=== PATIENT | female | born 1950 | race Caucasian/White ===

== ENCOUNTER → 2018-09-30 08:23 | Outpatient (CLI) | payer MEDICARE, SELFPAY ==
--- NOTE | 2018-09-30 08:29 | CT_ITS ---
STUDY: CT MAXILLOFACIAL SINUSES REASON FOR EXAM: Female, 68 years old. Sinusitis with deviated septum RADIATION DOSAGE (If Supplied By Facility): CTDIvol = ( 33.06 ) mGy, DLP = ( 854.51 ) mGycm TECHNIQUE: The patient was scanned in a multi detector CT scanner. High resolution axial imaging was performed without the administration of intravenous contrast material. Sagittal and coronal images were reconstructed. Individualized dose optimization techniques were used for this CT. COMPARISON: None. FINDINGS: FRONTAL SINUSES: Complete opacification the right frontal sinuses. Left frontal sinuses are clear. ETHMOIDAL SINUSES: Near complete opacification of the right ethmoid air cells (anterior and posterior) with normal appearance of left ethmoid air cells. As an osteoma of the anterior ethmoid sinuses (axial image 99). MAXILLARY SINUSES: Near complete opacification of the right maxillary sinus with an air-fluid level demonstrated. There is ossification of the posterior/dependent maxillary sinus on axial image 68 and may represent a calcified because retention cyst or other sequela of inflammation. There is a defect in the medial maxillary sinus wall on axial image 77 suggesting prior osteotomy. The left maxillary sinus is clear. SPHENOIDAL SINUSES: Complete opacification of the right sphenoid sinuses with minimally aerated portion anteriorly. Left sphenoid sinus is clear. There is patency of the left maxillary infundibulum with normal uncinate processes, ethmoid bullae, and hiatus semilunaris. There is soft tissue density extending into the right maxillary sinus infundibulum but no evidence of osseous erosion. Normal bilateral middle turbinates. Normal bilateral inferior turbinates. There is a left sided nasal septal deviation with a left sided nasal septal spur. There is patency of the bilateral nasal airways. Rounded soft tissue density in the right external auditory canal (axial image 96) likely represents cerumen. Smaller focus of increased density in the left external auditory canal as seen on image 90. The visualized osseous structures are normal. The visualized bilateral orbital contents are normal. CT/Sinus/Facial Bone IMPRESSION: 1. Severe chronic sinusitis of the right frontal, ethmoid, maxillary and sphenoid sinuses. Apparent right maxillary sinus medial osteotomy. 2. Left paranasal sinuses are free of significant mucosal thickening. 3. Right more than left external auditory canal cerumen. Electronically Signed: Kwadwo Medina MD at 12:56 EDT , Service support ,
== END ==
PROVIDERS: Family Provider Family Medicine; PCP Family Medicine; Referring Provider Otolaryngology; Visit Provider Otolaryngology
DX: J32.9 Chronic sinusitis, unspecified (principal); R09.81 Nasal congestion
CPT/HCPCS: 70486

== ENCOUNTER → 2018-10-19 | Outpatient (CLI) | payer MEDICARE, SELFPAY | END | disposition home or self-care (01) | LOC: LABSPEC 15:53 | PROVIDERS: Family Provider Family Medicine; PCP Family Medicine; Referring Provider Otolaryngology; Visit Provider Otolaryngology | DX: J32.9 Chronic sinusitis, unspecified (principal) | CPT/HCPCS: 87070; 87077; 87186; 87205 ==

== ENCOUNTER → 2019-07-06 11:09 | Outpatient (CLI) | payer MEDICARE, SELFPAY ==
[2019-06-22 15:40] VITALS: BMI 22.9
[2019-07-06 13:18] LABS: Hematocrit 38.1 % (37-47); Hemoglobin 12.4 g/dL (12.0-15.0); Mean Corp Hgb Conc 32.5 g/dL (32-36); Mean Corpuscular Hgb 31.8 pg (27.0-32.0); Mean Corpuscular Volume 97.7 fL (81-99); Mean Platelet Vol. 9.6 fl (6.2-12.0); Platelet Count 244 K/mm3 (150-450); RBC Distribution Width CV 11.9 % (11.6-14.6); RBC Distribution Width SD 42.8 fl (35.1-43.9); White Blood Count 6.1 K/mm3 (4.4-11.0)
[2019-07-06 13:34] LABS: Anion Gap 5 (5-15); BUN 16 mg/dL (7-18); BUN/Creat Ratio 15.8 RATIO (10-20); Calcium,Total 8.9 mg/dL (8.5-10.1); Chloride 102 mmol/L (98-107); Creatinine, Serum 1.01 mg/dL (0.55-1.02); EST Glomerular Filtration Rate 58 mL/min (>60); Est Glom Filt Rate - Afr Amer 70 mL/min (>60); Glucose 88 mg/dL (74-106); Potassium 3.8 mmol/L (3.5-5.1); Sodium Level 134 mmol/L (136-145)
== END ==
PROVIDERS: Family Provider Family Medicine; PCP Family Medicine; Referring Provider Otolaryngology; Visit Provider Otolaryngology
DX: Z01.812 Encounter for preprocedural laboratory examination (principal); J32.4 Chronic pansinusitis
CPT/HCPCS: 36415; 80048; 85027

== ENCOUNTER → 2019-07-17 12:55 | Outpatient (CLI) | payer MEDICARE, SELFPAY ==
[2019-06-22 15:40] VITALS: BMI 22.9
--- NOTE | 2019-07-17 12:56 | ECHOD_ITS ---
Reason For Study: Murmur Procedure This was a 2D Doppler, Color Flow transthoracic echocardiogram. The exam was of adequate technical quality. Exam performed in department. Left Ventricle Normal LV size. Left ventricular systolic function is normal. The estimated ejection fraction is 65 %. Diastolic function is indeterminate. No regional wall motion abnormalities noted. Right Ventricle Normal RV size. Normal systolic function. Atria Normal left atrium. Normal right atrium. No doppler evidence for ASD. Mitral Valve There is no mitral annular calcification. Mild diffuse mitral valve thickening. Mild (1+) mitral valve insufficiency. Tricuspid Valve Normal tricuspid valve. Moderate (2+) tricuspid valve insufficiency. Right ventricular systolic pressure estimated to be 36 mmHg. Aortic Valve Bicuspid aortic valve. Mild diffuse aortic valve thickening. Moderate focal aortic valve calcification. Mild to moderate aortic stenosis. Pulmonic Valve The pulmonic valve is not well visualized. Trivial pulmonic valve insufficiency. Great Vessels Mildly dilated aortic root. Pericardium/Pleural No pericardial effusion. MMode/2D Measurements & Calculations LVIDd: 3.2 cm IVSd: 1.3 cm LVOT diam: 2.0 cm LVIDs: 2.0 cm LVPWd: 1.2 cm LVOT area: 3.2 cm2 RVDd: 3.0 cm FS: 37.6 % Ao root diam: 4.0 cm LAV(MOD-bp): 34.9 ml Aortic Valve Planimetry: 1.5 cm2 LA dimension: 2.9 cm LAV(MOD-bp) Indexed: 20.9 ml/m2 LAV(MOD-sp2): 35.3 ml LAV(MOD-sp4): 29.9 ml LA A4 area: 12.9 cm2 RA A4 area: 12.1 cm2 Time Measurements MV dec time: 0.24 sec Doppler Measurements & Calculations MV E max clay: 70.1 cm/sec Lat Peak E' Clay: 9.8 cm/sec Med Peak E' Clay: 5.7 cm/sec MV A max clay: 100.8 cm/sec E/E' lat: 7.1 E/E' med: 12.2 MV E/A: 0.70 MV V2 max: 108.7 cm/sec MV P1/2t max clay: 77.8 cm/sec Ao V2 max: 294.5 cm/sec MV max P.7 mmHg MV P1/2t: 46.8 msec Ao max P.7 mmHg MV V2 mean: 63.3 cm/sec MV dec slope: 486.8 cm/sec2 Ao V2 mean: 207.8 cm/sec MV mean P.9 mmHg Ao mean P.4 mmHg MV V2 VTI: 22.9 cm MVA(P1/2t): 4.7 cm2 Ao V2 VTI: 62.9 cm MVA(VTI): 3.1 cm2 YASMIN(I,D): 1.1 cm2 YASMIN(V,D): 1.1 cm2 LV V1 max: 104.6 cm/sec SV(LVOT): 70.8 ml PA V2 max: 84.6 cm/sec LV V1 max P.4 mmHg LV V1 mean P.2 mmHg LV V1 mean: 67.2 cm/sec LV V1 VTI: 21.9 cm TR max clay: 286.3 cm/sec TR max P.8 mmHg Interpretation Summary Left ventricular systolic function is normal. The estimated ejection fraction is 65 %. Mild diffuse mitral valve thickening. Mild (1+) mitral valve insufficiency. Moderate (2+) tricuspid valve insufficiency. Bicuspid aortic valve. Mild to moderate aortic stenosis. Trivial pulmonic valve insufficiency. Mildly dilated aortic root. Right ventricular systolic pressure estimated to be 36 mmHg. Diastolic function is indeterminate. Ordering Physician: Angel Silverman Referring Physician: Angel Silverman Performed By: Jamie Crews RCS
== END ==
PROVIDERS: Family Provider Family Medicine; PCP Family Medicine; Referring Provider Internal Medicine Cardiovascular Disease; Visit Provider Internal Medicine Cardiovascular Disease
DX: I71.2 Thoracic aortic aneurysm, without rupture (principal)
CPT/HCPCS: 93306

== ENCOUNTER → 2020-07-25 09:57 | Outpatient (CLI) | payer MEDICARE, SELFPAY ==
[2020-06-21 10:09] VITALS: BMI 25.2
--- NOTE | 2020-07-25 10:03 | ECHOD_ITS ---
Reason For Study: BICUSPID AV Procedure This was a 2D Doppler, Color Flow transthoracic echocardiogram. The exam was of adequate technical quality. Exam performed in department. Left Ventricle Normal LV size. Left ventricular systolic function is normal. The estimated ejection fraction is 60 %. No evidence for diastolic dysfunction. No regional wall motion abnormalities noted. Right Ventricle Normal RV size. Normal systolic function. Atria The left atrium is mildly enlarged. Normal right atrium. No doppler evidence for ASD. Mitral Valve There is no mitral annular calcification. Mild diffuse mitral valve thickening. Mild-Moderate (1-2+) mitral valve insufficiency. Tricuspid Valve Normal tricuspid valve. Moderate (2+) tricuspid valve insufficiency. Right ventricular systolic pressure estimated to be 37 mmHg. Aortic Valve Bicuspid aortic valve. Mild diffuse aortic valve thickening. Moderate diffuse aortic valve calcification. Moderate aortic stenosis. Pulmonic Valve The pulmonic valve is not well visualized. Trivial pulmonic valve insufficiency. Great Vessels Borderline enlarged aortic root. Pericardium/Pleural No pericardial effusion. MMode/2D Measurements & Calculations LVIDd: 3.6 cm IVSd: 0.98 cm LVOT diam: 2.0 cm LVIDs: 2.5 cm LVPWd: 0.98 cm LVOT area: 3.0 cm2 RVDd: 3.2 cm FS: 30.6 % Ao root diam: 3.8 cm LAV(MOD-bp): 52.7 ml Aortic Valve Planimetry: 0.89 cm2 LAV(MOD-bp) Indexed: 30.0 ml/m2 LAV(MOD-sp2): 46.2 ml LAV(MOD-sp4): 46.4 ml LA dimension(2D): 3.8 cm LA A4 area: 17.2 cm2 RA A4 area: 15.8 cm2 Time Measurements MV dec time: 0.27 sec Doppler Measurements & Calculations MV E max clay: 71.2 cm/sec Lat Peak E' Clay: 12.3 cm/sec Med Peak E' Clay: 8.5 cm/sec MV A max clay: 87.1 cm/sec E/E' lat: 5.8 E/E' med: 8.4 MV E/A: 0.82 Ao V2 max: 315.0 cm/sec LV V1 max: 91.7 cm/sec SV(LVOT): 64.8 ml Ao max P.7 mmHg LV V1 max P.4 mmHg Ao V2 mean: 241.9 cm/sec LV V1 mean P.0 mmHg Ao mean P.0 mmHg LV V1 mean: 66.6 cm/sec Ao V2 VTI: 77.6 cm LV V1 VTI: 21.4 cm YASMIN(I,D): 0.83 cm2 YASMIN(V,D): 0.88 cm2 PA V2 max: 70.6 cm/sec PI end-d clay: 83.9 cm/sec TR max clay: 291.6 cm/sec TR max P.0 mmHg Interpretation Summary Left ventricular systolic function is normal. The estimated ejection fraction is 60 %. The left atrium is mildly enlarged. Mild diffuse mitral valve thickening. Mild-Moderate (1-2+) mitral valve insufficiency. Moderate (2+) tricuspid valve insufficiency. Bicuspid aortic valve. Moderate aortic stenosis. Trivial pulmonic valve insufficiency. Borderline enlarged aortic root. Right ventricular systolic pressure estimated to be 37 mmHg. No evidence for diastolic dysfunction. Ordering Physician: Angel Silverman Referring Physician: GEGE SHORE Performed By: Lina Latham, RDCS, RVT
== END ==
PROVIDERS: PCP Family Medicine; Referring Provider Internal Medicine Cardiovascular Disease; Visit Provider Internal Medicine Cardiovascular Disease
DX: Q23.1 Congenital insufficiency of aortic valve (principal); I71.2 Thoracic aortic aneurysm, without rupture; I10 Essential (primary) hypertension
CPT/HCPCS: 93306

== ENCOUNTER 2021-09-17 10:38 | Outpatient (CLI) | payer MEDICARE, SELFPAY ==
--- NOTE | 2021-09-17 10:44 | ECHOD_ITS ---
Reason For Study: Bicuspid AV Procedure This was a 2D Doppler, Color Flow transthoracic echocardiogram. The exam was of adequate technical quality. Exam performed in department. Left Ventricle Normal LV size. Mid cavitary false tendon noted. Left ventricular systolic function is normal. The estimated ejection fraction is 65 %. No evidence for diastolic dysfunction. No regional wall motion abnormalities noted. Right Ventricle Normal RV size. Normal systolic function. Atria The left atrium is mildly enlarged. Normal right atrium. No doppler evidence for ASD. Mitral Valve There is no mitral annular calcification. Mild diffuse mitral valve thickening. Mild-Moderate (1-2+) mitral valve insufficiency. Tricuspid Valve Normal tricuspid valve. Moderate (2+) tricuspid valve insufficiency. Right ventricular systolic pressure estimated to be 34 mmHg. Aortic Valve Bicuspid aortic valve. Mild diffuse aortic valve thickening. Moderate focal aortic valve calcification. Moderate aortic stenosis. Pulmonic Valve The pulmonic valve is not well visualized. Great Vessels Borderline enlarged aortic root. Pericardium/Pleural No pericardial effusion. MMode/2D Measurements & Calculations LVIDd: 4.0 cm IVSd: 1.0 cm LVOT diam: 2.0 cm LVIDs: 2.4 cm LVPWd: 0.91 cm LVOT area: 3.1 cm2 RVDd: 3.0 cm FS: 38.1 % Ao root diam: 3.5 cm LAV(MOD-bp): 47.5 ml LVAd ap4: 22.9 cm2 LAV(MOD-bp) Indexed: 28.8 ml/m2 LVLd ap4: 7.0 cm LAV(MOD-sp2): 48.0 ml EDV(MOD-sp4): 61.6 ml LAV(MOD-sp4): 41.9 ml EDV(sp4-el): 63.5 ml LVAs ap4: 12.5 cm2 LVLs ap4: 5.7 cm ESV(MOD-sp4): 24.2 ml ESV(sp4-el): 23.4 ml EF(MOD-sp4): 60.8 % EF(sp4-el): 63.2 % LVAd ap2: 22.1 cm2 SV(MOD-sp4): 37.4 ml SV(MOD-sp2): 39.4 ml LVLd ap2: 6.8 cm EDV(MOD-sp2): 60.8 ml EDV(sp2-el): 60.5 ml LVAs ap2: 12.2 cm2 LVLs ap2: 6.1 cm ESV(MOD-sp2): 21.4 ml ESV(sp2-el): 20.9 ml EF(MOD-sp2): 64.8 % SV(sp4-el): 40.1 ml LA dimension(2D): 3.4 cm LA A4 area: 15.7 cm2 RA A4 area: 17.8 cm2 Doppler Measurements & Calculations MV E max clay: 86.1 cm/sec Lat Peak E' Clay: 11.6 cm/sec Med Peak E' Clay: 7.4 cm/sec MV A max clay: 81.6 cm/sec E/E' lat: 7.4 E/E' med: 11.7 MV E/A: 1.1 Ao V2 max: 309.6 cm/sec LV V1 max: 106.0 cm/sec SV(LVOT): 74.1 ml Ao max P.4 mmHg LV V1 max P.5 mmHg Ao V2 mean: 218.4 cm/sec LV V1 mean P.3 mmHg Ao mean P.3 mmHg LV V1 mean: 72.1 cm/sec Ao V2 VTI: 75.8 cm LV V1 VTI: 24.3 cm YASMIN(I,D): 0.98 cm2 YASMIN(V,D): 1.0 cm2 PA V2 max: 80.9 cm/sec TR max clay: 277.2 cm/sec TR max P.7 mmHg ECHO/Echo Complete Interpretation Summary Left ventricular systolic function is normal. The estimated ejection fraction is 65 %. Mid cavitary false tendon noted. The left atrium is mildly enlarged. Mild diffuse mitral valve thickening. Mild-Moderate (1-2+) mitral valve insufficiency. Moderate (2+) tricuspid valve insufficiency. Bicuspid aortic valve. Moderate aortic stenosis. Borderline enlarged aortic root. Right ventricular systolic pressure estimated to be 34 mmHg. No evidence for diastolic dysfunction. Ordering Physician: Angel Silverman Referring Physician: Tyrese Alicia Performed By: Zari Goddard, [facility]
== END 2021-09-17 23:59 | disposition home or self-care (01) ==
LOC: CVS 10:44
PROVIDERS: PCP Family Medicine; Referring Provider Internal Medicine Cardiovascular Disease; Visit Provider Internal Medicine Cardiovascular Disease
DX: Q23.1 Congenital insufficiency of aortic valve (principal)
CPT/HCPCS: 93306

== ENCOUNTER → 2022-03-16 | Outpatient (CLI) | payer MEDICARE, SELFPAY ==
[2022-03-16 17:47] LABS: Hematocrit 35.4 % (37-47); Hemoglobin 11.8 g/dL (12.0-15.0); Mean Corp Hgb Conc 33.3 g/dL (32-36); Mean Corpuscular Volume 98.9 fL (81-99); Mean Platelet Vol. 10.5 fl (6.2-12.0); Platelet Count 216 K/mm3 (150-450); RBC Distribution Width CV 12.5 % (11.6-14.6); RBC Distribution Width SD 45.5 fl (35.1-43.9); Red Blood Count 3.58 M/mm3 (4.2-5.4); White Blood Count 5.1 K/mm3 (4.4-11.0)
[2022-03-16 18:09] LABS: Erythrocyte Sedimentation Rate 10 mm/hr (0-30)
[2022-03-16 18:40] LABS: Vitamin B12 1186 pg/mL (211-911)
[2022-03-16 18:46] LABS: AST(SGOT) 18 U/L (15-37); Alanine Aminotransfer ALT/SGPT 24 U/L (13-56); Albumin, Serum 3.3 g/dL (3.2-5.0); Alkaline Phosphatase 44 U/L (45-117); Anion Gap 5 (5-15); BUN 17 mg/dL (7-18); BUN/Creat Ratio 14.8 RATIO (10-20); Chloride 105 mmol/L (98-107); Creatinine, Serum 1.15 mg/dL (0.55-1.02); EST Glomerular Filtration Rate 49 mL/min (>60); Est Glom Filt Rate - Afr Amer 60 mL/min (>60); Globulin 3.4 g/dL (2.2-4.2); Glucose 114 mg/dL (74-106); Potassium 3.9 mmol/L (3.5-5.1); Protein, Total 6.7 g/dL (6.4-8.2); Sodium Level 138 mmol/L (136-145); Thyroid Stim Hormone (TSH) 0.61 uIU/mL (0.358-3.74)
== END | disposition home or self-care (01) ==
LOC: MFPLAB 16:49
PROVIDERS: PCP Family Medicine; Visit Provider Family Medicine
DX: R41.0 Disorientation, unspecified (principal)
CPT/HCPCS: 36415; 80053; 82607; 84443; 85027; 85652

== ENCOUNTER → 2022-09-28 | Outpatient (CLI) | payer MEDICARE, SELFPAY ==
--- NOTE | 2022-09-28 10:24 | RAD_ITS ---
EXAM: XR LUMBOSACRAL SPINE, 4 OR 5 VIEWS CLINICAL INDICATION: PAIN IN BOTH LOWER EXTREMITIES TECHNIQUE: Frontal, lateral and bilateral oblique views of the lumbar spine. This report was created using [employer] report [employer] technology. COMPARISON: None. FINDINGS: VERTEBRAE: There is anterior spondylolisthesis of L4 on L5 of 7 mm. Preserved vertebral body height. No fracture. Preservation of the normal lumbar lordosis. No significant facet arthropathy. DISC SPACES: No acute findings. Disc spaces are maintained. GASTROINTESTINAL TRACT: Unremarkable as visualized. Included bowel gas pattern is non-obstructive. RAD/L/S Spine Min 4 Views IMPRESSION: Degenerative changes at L4-5 with anterior spondylolisthesis of L4 on L5. There are no acute osseous abnormalities. Electronically Signed: Robert Tristan MD at 22:31 EDT ,
--- NOTE | 2022-09-28 10:24 | RAD_ITS ---
STUDY: XR Abdomen W/ Decub and/or Erect Views 09/28/2022 10:32 AM REASON FOR EXAM: Female, 72 years old. ABDOMINAL PAIN CONSTIPATION TECHNIQUE: XR Abdomen W/ Decub and/or Erect Views COMPARISON: None FINDINGS: Normal visualized lung bases. There is a moderate amount of colonic fecal material. There is no demonstrated free abdominal air. The visualized liver, spleen and kidneys are grossly normal in size and morphology. Normal soft tissue structures. Normal visualized osseous structures. RAD/Abd Inc Decub and/or Erect IMPRESSION: Constipation. Electronically Signed: Edil Estrada MD at 21:47 EDT ,
[2022-09-28 12:45] LABS: Erythrocyte Sedimentation Rate 52 mm/hr (0-30)
[2022-09-28 12:49] LABS: Absolute Lymphocyte Count 0.89 X10^3/uL (0.83-4.51); Absolute Neutrophil Count 9.4 X10^3/uL (2.0-7.7); Basophil# 0.08 X10^3/uL; Basophil% 0.7 % (0-1); Eosinophil# 0.15 X10^3/uL; Eosinophils% 1.3 % (0-5); Hematocrit 32.7 % (37-47); Hemoglobin 10.7 g/dL (12.0-15.0); Lymphocyte # 0.89 X10^3/ul (0.83-4.51); Lymphocyte % 7.9 % (19-41); Mean Corp Hgb Conc 32.7 g/dL (32-36); Mean Corpuscular Hgb 31.1 pg (27.0-32.0); Mean Corpuscular Volume 95.1 fL (81-99); Mean Platelet Vol. 9.9 fl (6.2-12.0); Monocyte# 0.74 X10^3/uL; Monocyte% 6.6 % (0-10); NRBC Flagged by Analyzer 0 % (0-5); Neutrophil # 9.36 X10^3/uL (2.7-7.7); Neutrophil % 83.1 % (47-70); Platelet Count 389 K/mm3 (150-450); RBC Distribution Width CV 12.4 % (11.6-14.6); RBC Distribution Width SD 43.3 fl (35.1-43.9); Red Blood Count 3.44 M/mm3 (4.2-5.4); White Blood Count 11.3 K/mm3 (4.4-11.0)
[2022-09-28 12:57] LABS: Vitamin D,25 Hydroxy 58.2 ng/mL
[2022-09-28 13:03] LABS: ALB/GLOB Ratio 0.6 RATIO (0.9-2.4); AST(SGOT) 17 U/L (15-37); Alanine Aminotransfer ALT/SGPT 14 U/L (13-56); Albumin, Serum 2.6 g/dL (3.2-5.0); Alkaline Phosphatase 55 U/L (45-117); Anion Gap 4 (5-15); BUN 11 mg/dL (7-18); BUN/Creat Ratio 16.2 RATIO (10-20); Calcium,Total 8.6 mg/dL (8.5-10.1); Chloride 106 mmol/L (98-107); Creatinine, Serum 0.68 mg/dL (0.55-1.02); EST Glomerular Filtration Rate 90 mL/min (>60); Est Glom Filt Rate - Afr Amer 109 mL/min (>60); Globulin 4.4 g/dL (2.2-4.2); Glucose 100 mg/dL (74-106); Potassium 3.8 mmol/L (3.5-5.1); Rheumatoid Factor < 10.0 IU/mL (<15); Sodium Level 135 mmol/L (136-145); T4 Free Direct 1.54 ng/dL (0.76-1.46); Thyroid Stim Hormone (TSH) 0.83 uIU/mL (0.358-3.74)
[2022-09-29 13:08] LABS: PROEL- A/G Ratio 0.9 (0.7-1.7); PROEL- Albumin 2.8 g/dL (2.9-4.4); PROEL- Alpha-1 Globulin 0.5 g/dL (0.0-0.4); PROEL- Beta Globulin 0.8 g/dL (0.7-1.3); PROEL- Gamma Globulin 0.9 g/dL (0.4-1.8); PROEL- Globulin, Total 3.2 g/dL (2.2-3.9)
[2022-09-29 16:32] LABS: ANTINUCLEAR ANTIBODIES DIRECT Negative (Negative)
== END | disposition home or self-care (01) ==
PROVIDERS: PCP Family Medicine; Visit Provider Family Medicine
DX: M79.604 Pain in right leg (principal); M79.605 Pain in left leg; K59.00 Constipation, unspecified; E03.9 Hypothyroidism, unspecified; M85.80 Other specified disorders of bone density and structure, unspecified site; M79.7 Fibromyalgia
CPT/HCPCS: 36415; 72110; 74019; 80053; 82306; 84165; 84439; 84443; 85025; 85652; 86038; 86431

== ENCOUNTER → 2022-10-01 | Outpatient (CLI) | payer MEDICARE, SELFPAY ==
[2022-10-01 12:18] LABS: Platelet Count 404 K/mm3 (150-450); RET-HE 25.5 pg (30-35); Reticulocyte Count 1.61 % (0.5-1.5)
[2022-10-01 13:31] LABS: Ferritin 86 ng/mL (8-252); Iron 23 ug/dL (50-170); Iron Binding Capacity,Total 222 ug/dL (250-450); PERCENT IRON SATURATION 10.4 % (15.0-55.0)
== END | disposition home or self-care (01) ==
LOC: MFPLAB 10:44
PROVIDERS: PCP Family Medicine; Referring Provider Family Medicine; Visit Provider Family Medicine
DX: D64.9 Anemia, unspecified (principal)
CPT/HCPCS: 36415; 82728; 83540; 83550; 85045

== ENCOUNTER → 2022-10-15 | Outpatient (CLI) | payer MEDICARE, SELFPAY ==
[2022-10-15 12:56] LABS: Mucous, Urine 0 SEEN /hpf (<or=2+); Red Blood Cells-Urine 0 SEEN /hpf (0-5)
[2022-10-15 13:13] LABS: Color, Urine Yellow (Yellow); Glucose, Dipstick Normal (Normal); Ketone-Dipstick Negative (Negative); Leukocyte Esterase-Dipstick 500 /ul (Negative); Nitrite-Dipstick Negative (Negative); Occult Blood-Urine 25 /ul (Negative); Protein-Dipstick 15 mg/dl (Negative); Urine Bilirubin Dipstick Negative (Negative); Urine Clarity Sl. Cloudy (Clear); Urine Urobilinogen Normal (Normal); Urine pH 6.5 (5.0 - 8.0)
[2022-10-15 13:28] LABS: Bacteria RARE /hpf (None Seen); Squamous Epithelial Cells - UA 5-10 SEEN /hpf (5-10); White Blood Cells 10-25 SEEN /hpf (0-5)
== END | disposition home or self-care (01) ==
PROVIDERS: PCP Family Medicine; Referring Provider Nurse Practitioner Family; Visit Provider Nurse Practitioner Family
DX: N39.0 Urinary tract infection, site not specified (principal)
CPT/HCPCS: 81001; 87077; 87086; 87088; 87186

== ENCOUNTER 2022-10-23 13:24 | Emergency (ER) | payer MEDICARE, SELFPAY ==
[2022-10-23 13:25] VITALS: BP 100/57; PULSE 75; RESP 16; TEMP 36.3; O2SAT 97
[2022-10-23 13:28] VITALS: BMI 20.6
--- NOTE | 2022-10-23 14:15 | EKG12_ITS ---
Test Reason : Blood Pressure : / mmHG Vent. Rate : 071 BPM Atrial Rate : 071 BPM P-R Int : 190 ms QRS Dur : 090 ms QT Int : 400 ms P-R-T Axes : 056 -01 -23 degrees QTc Int : 434 ms Sinus rhythm with Premature atrial complexes Nonspecific ST and T wave abnormality Abnormal ECG Confirmed by FABRICIO MCKINNEY, STACY ([id number]), editorial manager RAN MARCUM ([id number]) on 10/26/2022 11:06:57 AM Referred By: Louise Raman Confirmed By:STACY REGALADO MD
--- NOTE | 2022-10-23 14:21 | EX.ED.DYSGE1 ---
HPI History of Present Illness Chief Complaint: Alt LOC Informant: patient Onset/Context/Timing Onset: Weeks Narrative Narrative: Patient presents with for evaluation after not acting right over the past 3 weeks. He states 3 weeks ago he noted a change in her including brain fog and increased weakness. He states that during the day she is able to get up and get to the bathroom on her own, but by evening she is weak and he has to assist her. You often find her sitting in her chair with her eyes closed. She is currently on Macrobid for a UTI. They also complained that she had a cough for the past 6 weeks. She will occasionally bring up sputum. She has had no fever. She denies shortness of breath or chest pain. She does report her cough will increase with activity. [facility] Medical History Bicuspid aortic valve Deviated nasal septum Essential hypertension Fibromyalgia Graves disease Hypothyroidism Non-rheumatic mitral regurgitation Non-rheumatic tricuspid valve insufficiency Nonrheumatic aortic (valve) stenosis Thoracic aortic aneurysm without rupture Home Medications aspirin 81 mg tablet,delayed release (Adult Low Dose Aspirin) 81 mg PO DAILY 06/20/19 [History Last Taken Unknown] losartan 25 mg tablet 25 mg PO DAILY 06/20/19 [History Last Taken Unknown] amlodipine 10 mg tablet 10 mg PO DAILY 06/22/19 [History Last Taken Unknown] amoxicillin 500 mg capsule 500 mg PO ONCE PRN aortic valve disord #12 caps 06/22/19 [Rx Last Taken Unknown] calcium carb,cit ER 600 mg-vit D3 12.5 mcg (500 unit) tablet,ext.rel (Citracal-D3 Slow Release) 1 tab PO DAILY 06/22/19 [History Last Taken Unknown] melatonin 5 mg tablet 5 mg PO HS PRN 06/22/19 [History Last Taken Unknown] multivitamin 2 tab PO TID 06/22/19 [History Last Taken Unknown] vitamin B complex (B Complex-Vitamin B12 tablet) 1 tab PO DAILY 06/22/19 [History Last Taken Unknown] pregabalin 75 mg capsule (Lyrica) 225 mg PO QHS 06/21/20 [History Last Taken Unknown] amitriptyline 10 mg tablet 20 mg PO QHS 08/15/21 [History Last Taken Unknown] cholecalciferol (vitamin D3) 25 mcg (1,000 unit) tablet 25 mcg PO DAILY 08/15/21 [History Last Taken Unknown] clonazepam 2 mg tablet 1 mg PO QHS 08/15/21 [History Last Taken Unknown] levothyroxine 112 mcg tablet 112 mcg PO DAILY 08/15/21 [History Last Taken Unknown] magnesium 200 mg tablet 400 mg PO DAILY 08/15/21 [History Last Taken Unknown] progesterone 10 mg sublingual DAILY 08/15/21 [History Last Taken Unknown] propranolol 20 mg tablet 20 mg PO BID 08/15/21 [History Last Taken Unknown] testosterone 5 mg PO .QOD 08/15/21 [History Last Taken Unknown] levofloxacin 750 mg tablet 750 mg PO DAILY #4 tabs 10/23/22 [Rx Last Taken Unknown] potassium chloride 20 mEq tablet,extended release 20 meq PO BID #6 tabs 10/23/22 [Rx Last Taken Unknown] Allergy/AdvReac Type Severity Reaction Status Date / Time levothyroxine AdvReac Severe Hallucinati Verified 10/23/22 13:28 on losartan AdvReac Severe hyperkalemi Verified 10/23/22 13:28 a zolpidem [From Ambien] AdvReac Severe Muscle Verified 10/23/22 13:28 Aches liothyronine [From Cytomel] AdvReac Unknown Unknown Verified 10/23/22 13:28 Sulfa (Sulfonamide AdvReac Unknown Unknown Verified 10/23/22 13:28 Antibiotics) Family History Father Cancer Leukemia Surgical History History of tonsillectomy History of tubal ligation Social History Smoking Status: Never smoker alcohol intake: never substance use type: does not use caffeine: Yes ROS ROS ED Constitutional Constitutional ED: Denies chills or fever(s) Eyes Eyes: Denies change in vision or discharge from eye(s) ENT ENT ED: Denies discharge from eye(s), rhinorrhea or sore throat Cardiovascular Cardiovascular: Denies chest pain or palpitations Respiratory/Chest Respiratory/Chest: Reports cough; Denies dyspnea Gastrointestinal Gastrointestinal: Denies abdominal pain, diarrhea, nausea or vomiting Genitourinary Genitourinary ED: Denies dysuria Musculoskeletal Musculoskeletal: Reports extremity pain; Denies back pain Integumentary Denies Abrasions or rash Neurologic Neurologic: Reports weakness; Denies headache(s) Psychiatric Psychiatric: Denies anxiety or depression Allergic/Immunologic Allergic/Immunologic ED: Denies lip swelling or urticaria EXAM Physical Exam Const Vital Signs: 10/23/22 13:25 10/23/22 14:24 10/23/22 15:00 Temperature 97.4 F L Temperature Source Temporal Pulse Rate 75 69 67 Respiratory Rate 16 16 16 Blood Pressure 100/57 L 98/61 Blood Pressure Mean 71 73 Pulse Ox 97 99 99 Oxygen Delivery Method Room Air Room Air Room Air Positive well nourished and well developed General Appearance ED: well developed HEENT Reports normocephalic and head/scalp atraumatic Eyes PERRL and EOMs intact bilaterally Neck supple Chest Wall inspection of chest normal and palpation of chest normal Resp normal respiratory effort and clear to auscultation bilaterally Cardio regular rate and regular rhythm Heart Sounds: murmur GI normal to inspection, nondistended, normoactive bowel sounds Palpation: soft Extremity Extremity Narrative: 2+ bilateral lower extremity edema, symmetric. Neuro oriented x3 Neuro Narrative: Generalized weakness with no focal neurodeficits. Sensorium / Orientation: alert Psych mental status grossly normal Skin no rashes or lesions noted MDM MDM MDM Narrative Medical decision making narrative: Patient placed on clinical research monitor. EKG obtained to evaluate for cardiac arrhythmia/ischemia. Chest x-ray obtained to evaluate for acute lung pathology, cardiac size, or mediastinal abnormality. Urinalysis obtained to evaluate for infection/hematuria. CT scan of the head obtained given her weakness and increased sleepiness. Lab Data Attestation: I reviewed the patient's lab results. Labs: Laboratory Results - last 24 hr 10/23/22 10/23/22 10/23/22 13:41 13:41 13:41 WBC 13.1 H RBC 3.36 L Hgb 10.0 L Hct 31.4 L MCV 93.5 MCH 29.8 MCHC 31.8 L RDW Std Deviation 45.8 H RDW Coeff of Jaymie 13.5 Plt Count 330 MPV 10.4 Immature Gran % (Auto) 0.700 Neut % (Auto) 80.6 H Lymph % (Auto) 9.1 L [place] % (Auto) 7.0 Eos % (Auto) 2.1 Baso % (Auto) 0.5 Absolute Neuts (auto) 10.5 H Absolute Lymphs (auto) 1.19 Nucleated RBC % 0 Sodium 135 L Potassium 3.0 L Chloride 104 Carbon Dioxide 24.0 Anion Gap 7 BUN 12 Creatinine 0.84 Estim Creat Clear Calc 53.61 Est GFR (MDRD) Af Amer 85 Est GFR (MDRD) Non-Af 70 BUN/Creatinine Ratio 14.2 Glucose 131 H Calcium 9.2 Total Bilirubin 0.30 Direct Bilirubin 0.09 AST 18 ALT 14 Alkaline Phosphatase 71 Troponin I High Sens 7 Total Protein 7.2 Albumin 2.4 L Globulin 4.8 H TSH 0.78 Urine Color Yellow Urine Clarity Clear Urine pH 6.5 Ur Specific [place] 1.005 Urine Protein Negative Urine Glucose (UA) Normal Urine Ketones Negative Urine Occult Blood 10 H Urine Nitrite Negative Urine Bilirubin Negative Urine Urobilinogen Normal Ur Leukocyte Esterase Negative Urine RBC 0-5 SEEN Urine WBC 0 SEEN Ur Squamous Epith Cells 0-5 SEEN Urine Bacteria 0 SEEN Urine Mucus 0 SEEN Radiography Chest X-Ray - ED: 2 View, Read by ED Physician and Right Infiltrate Diagnostic Testing: Clinical Impression(s) from Imaging Studies Chest X-Ray 10/23/22 14:30 IMPRESSION: Infiltration in the right upper lobe as well as in the right perihilar region as described. Follow-up following treatment is recommended to rule out possible underlying mass lesion. Electronically Signed: Óscar Orlando MD at 14:59 EDT , Brain CT 10/23/22 14:38 IMPRESSION: Chronic involutional changes of the brain. Sinusitis. Electronically Signed: Óscar Orlando MD at 15:01 EDT , Chest CT 10/23/22 15:07 IMPRESSION: Dense consolidation in the right upper lobe and right lower as discussed. Radiographic follow-up is recommended. Electronically Signed: Óscar Orlando MD at 15:33 EDT , EKG Initial EKG: Attestation: I personally reviewed and interpreted this EKG as follows: Interpretation: Sinus Rhythm (Sinus at 71 with no acute ischemia. Nonspecific T wave flattening noted.) Treatment and Re-Evaluation :: CBC was a white count of 13.1 with 80% neutrophils. Hemoglobin is 10. Chemistry studies reveal a sodium of 135 and a potassium of 3.0. This is replaced orally. LFTs unremarkable. Troponin is normal at 7. TSH is normal at 0.78. Urinalysis reveals no sign of acute infection at this time. EKG is sinus with no acute ischemia. Chest x-ray per my interpretation reveals right-sided infiltrate. Radiology interpretation is reviewed and agrees. They do recommend CT scan or close follow-up. CT of the head reveals chronic involutional changes. CT of the chest reveals dense consolidation in the right lung in 2 separate areas. On repeat evaluation patient resting comfortably. Her O2 sats are 93 to 95% on room air. We will treat her with a course of Levaquin as she has not been on appropriate antibiotics for lung coverage. Return instructions are provided. I will also write her a few days of potassium replacement. I will speak with her PCP or on-call coverage to ensure close follow-up. Discharge Plan Triage Chief Complaint: Alt LOC ED Provider: Louise Raman Dx/Rx/DC Orders Clinical Impression: Pneumonia, Hypokalemia Instructions: ED Hypokalemia, ED Pneumonia (Adult) Prescriptions: New levofloxacin 750 mg tablet 750 mg PO DAILY Qty: 4 0RF potassium chloride 20 mEq tablet extended release 20 meq PO BID Qty: 6 0RF No Action amlodipine 10 mg tablet 10 mg PO DAILY multivitamin Tablet 2 tab PO TID calcium carb,cit ER 600 mg calcium-vit D3 500 unit tablet,ext.release 600 mg calcium- 500 unit tablet extended release 1 tab PO DAILY melatonin 5 mg tablet 5 mg PO HS PRN vitamin B complex [B Complex-Vitamin B12] Tablet 1 tab PO DAILY amoxicillin 500 mg capsule 500 mg PO ONCE PRN (Reason: aortic valve disord) Qty: 12 3RF Rx Instructions: 4 tablets (2 gm) orally 1 hour prior to dental visit aspirin [Adult Low Dose Aspirin] 81 mg tablet,delayed release (DR/EC) 81 mg PO DAILY losartan 25 mg tablet 25 mg PO DAILY amitriptyline 10 mg tablet 20 mg PO QHS clonazepam 2 mg tablet 1 mg PO QHS propranolol 20 mg tablet 20 mg PO BID pregabalin [Lyrica] 75 mg capsule 225 mg PO QHS magnesium 200 mg tablet 400 mg PO DAILY testosterone 5 mg PO .QOD progesterone 10 mg sublingual DAILY cholecalciferol (vitamin D3) 25 mcg (1,000 unit) tablet 25 mcg PO DAILY levothyroxine 112 mcg tablet 112 mcg PO DAILY Rx Instructions: take one half tablet on Wednesday Primary Care Provider: Harman Flores Referrals: Harman Flores MD [Primary Care Provider] - 3-5 Days Disposition Disposition: Home, Self Care
[2022-10-23 14:24] VITALS: BP 98/61; PULSE 69; RESP 16; O2SAT 99
--- NOTE | 2022-10-23 14:30 | RAD_ITS ---
STUDY: X-RAY CHEST REASON FOR EXAM: Female, 72 years old. Cough TECHNIQUE: PA and lateral views of the chest. COMPARISON: None. FINDINGS: EKG electrodes are seen. Hyperinflation. Airspace disease is seen in the lateral aspect of the right upper lobe as well as in the medial aspect. Perihilar infiltrate is seen on the right side as well. Radiographic follow-up is recommended until clearing to rule out possible neoplastic process. There is no demonstrated pleural abnormality. Normal size heart. Normal mediastinum and yifan. Normal visualized pulmonary arteries. There is atherosclerotic calcification of the aortic arch with tortuosity. Normal visualized thoracic spine. Normal visualized ribs, clavicles, and shoulders. There is no demonstrated abnormality of the visualized soft tissue structures of the upper abdomen. RAD/Chest PA and Lateral IMPRESSION: Infiltration in the right upper lobe as well as in the right perihilar region as described. Follow-up following treatment is recommended to rule out possible underlying mass lesion. Electronically Signed: Óscar Orlando MD at 14:59 EDT ,
[2022-10-23 14:32] LABS: Bacteria 0 SEEN /hpf (None Seen); Mucous, Urine 0 SEEN /hpf (<or=2+); White Blood Cells 0 SEEN /hpf (0-5)
[2022-10-23 14:34] LABS: Absolute Lymphocyte Count 1.19 X10^3/uL (0.83-4.51); Absolute Neutrophil Count 10.5 X10^3/uL (2.0-7.7); Basophil# 0.07 X10^3/uL; Basophil% 0.5 % (0-1); Eosinophil# 0.27 X10^3/uL; Eosinophils% 2.1 % (0-5); Hematocrit 31.4 % (37-47); Lymphocyte # 1.19 X10^3/ul (0.83-4.51); Lymphocyte % 9.1 % (19-41); Mean Corp Hgb Conc 31.8 g/dL (32-36); Mean Corpuscular Hgb 29.8 pg (27.0-32.0); Mean Corpuscular Volume 93.5 fL (81-99); Mean Platelet Vol. 10.4 fl (6.2-12.0); Monocyte# 0.92 X10^3/uL; NRBC Flagged by Analyzer 0 % (0-5); Neutrophil # 10.54 X10^3/uL (2.7-7.7); Neutrophil % 80.6 % (47-70); Platelet Count 330 K/mm3 (150-450); RBC Distribution Width CV 13.5 % (11.6-14.6); RBC Distribution Width SD 45.8 fl (35.1-43.9); Red Blood Count 3.36 M/mm3 (4.2-5.4); White Blood Count 13.1 K/mm3 (4.4-11.0)
[2022-10-23 14:35] LABS: Color, Urine Yellow (Yellow); Glucose, Dipstick Normal (Normal); Ketone-Dipstick Negative (Negative); Leukocyte Esterase-Dipstick Negative /ul (Negative); Nitrite-Dipstick Negative (Negative); Occult Blood-Urine 10 /ul (Negative); Protein-Dipstick Negative (Negative); Specific Gravity, Urine 1.005 (1.002-1.030); Urine Bilirubin Dipstick Negative (Negative); Urine Clarity Clear (Clear); Urine Urobilinogen Normal (Normal); Urine pH 6.5 (5.0 - 8.0)
[2022-10-23 14:37] LABS: Red Blood Cells-Urine 0-5 SEEN /hpf (0-5); Squamous Epithelial Cells - UA 0-5 SEEN /hpf (5-10)
--- NOTE | 2022-10-23 14:38 | CT_ITS ---
STUDY: CT BRAIN WITHOUT CONTRAST REASON FOR EXAM: Female, 72 years old. Altered mental status RADIATION DOSAGE (If Supplied By Facility): CTDIvol = ( 44.99 ) mGy, DLP = ( 832.67 ) mGycm TECHNIQUE: Transaxial CT imaging of the brain was performed without administration of intravenous contrast material. Individualized dose optimization techniques were used for this CT. COMPARISON: No relevant priors. FINDINGS: Normal soft tissue structures. Normal calvarium. There is mild cerebral atrophy with widening of the extra-axial spaces and ventricular dilatation. Normal white matter tracts of the cerebral hemispheres. Normal basal ganglia and thalami. Normal brainstem. Normal cerebellum. There is no intracranial hemorrhage. There are no findings of an acute ischemic infarction. Atherosclerotic calcification of the cavernous portions of the internal carotid arteries bilaterally. Partial opacification of the maxillary sinuses with air-fluid levels. Partial opacification of the ethmoid sinuses worse on the right side. Mucosal thickening of the right sphenoid sinus. CT/Brain/Head without Contrast IMPRESSION: Chronic involutional changes of the brain. Sinusitis. Electronically Signed: Óscar Orlando MD at 15:01 EDT ,
[2022-10-23 14:58] LABS: AST(SGOT) 18 U/L (15-37); Alanine Aminotransfer ALT/SGPT 14 U/L (13-56); Albumin, Serum 2.4 g/dL (3.2-5.0); Alkaline Phosphatase 71 U/L (45-117); Anion Gap 7 (5-15); BUN 12 mg/dL (7-18); BUN/Creat Ratio 14.2 RATIO (10-20); Bilirubin, Direct 0.09 mg/dL (0.00-0.30); Calcium,Total 9.2 mg/dL (8.5-10.1); Chloride 104 mmol/L (98-107); Creatinine, Serum 0.84 mg/dL (0.55-1.02); EST Glomerular Filtration Rate 70 mL/min (>60); Est Glom Filt Rate - Afr Amer 85 mL/min (>60); Estimated Creatinine Clearance 53.61 ml/min; Globulin 4.8 g/dL (2.2-4.2); Glucose 131 mg/dL (74-106); Protein, Total 7.2 g/dL (6.4-8.2); Sodium Level 135 mmol/L (136-145); Thyroid Stim Hormone (TSH) 0.78 uIU/mL (0.358-3.74); Troponin-I HS 7 pg/mL (3.0-54.0)
[2022-10-23 15:00] VITALS: PULSE 67; RESP 16; O2SAT 99
--- NOTE | 2022-10-23 15:07 | CT_ITS ---
STUDY: CT CHEST WITHOUT CONTRAST REASON FOR EXAM: Female, 72 years old. Pneumonia RADIATION DOSAGE (If Supplied By Facility): CTDIvol = ( 9.37 ) mGy, DLP = ( 311.82 ) mGycm TECHNIQUE: Transaxial imaging was performed without the administration of intravenous contrast material. Multiplanar coronal and sagittal images were reformatted. Individualized dose optimization techniques were used for this CT. COMPARISON: Comparison is made with prior chest radiograph done earlier today. FINDINGS: CHEST There is dense consolidation in the peripheral lateral aspect of the right upper lobe extending to the right minor fissure. It is also evidence of focal consolidation in the superior segment of the right lower lobe medially. There is dense consolidation in the right lower lobe. There is no demonstrated pleural abnormality. There are calcifications of the coronary arteries. Calcified precarinal lymph node. Normal hilar regions. Normal unenhanced pulmonary arteries. There is atherosclerotic calcification of the aortic arch with tortuosity and elongation of the aortic arch and descending thoracic aorta. There is demineralization of the thoracic spine. There is no demonstrated abnormality of the visualized upper abdomen. CT/Chest without Contrast IMPRESSION: Dense consolidation in the right upper lobe and right lower as discussed. Radiographic follow-up is recommended. Electronically Signed: Óscar Orlando MD at 15:33 EDT ,
[2022-10-23 16:00] VITALS: BP 108/57; PULSE 69; RESP 17; O2SAT 95
[2022-10-23] MEDS: levoFLOXacin 750 MG Tablet PO (16:03)
[2022-10-23] MEDS: Potassium Chloride Oral Tablet 20 MEQ 40 MEQ PO (16:03)
[2022-10-23 16:22] VITALS: BP 108/67; PULSE 74; RESP 16; O2SAT 94
== END 2022-10-23 16:23 | disposition home or self-care (01) ==
PROVIDERS: Emergency Provider Emergency Medicine; PCP Family Medicine; Referring Provider Emergency Medicine; Visit Provider Emergency Medicine
DX: J18.9 Pneumonia, unspecified organism (principal); E87.6 Hypokalemia; I10 Essential (primary) hypertension
CPT/HCPCS: 70450; 71046; 71250; 80048; 80076; 81001; 84443; 84484; 85025; 87428; 93005; 99285; A4216

== ENCOUNTER → 2022-10-28 | Outpatient (CLI) | payer MEDICARE, SELFPAY ==
--- NOTE | 2022-10-28 12:49 | RAD_ITS ---
INDICATION: pneumonia EXAMINATION/TECHNIQUE: X-RAY - XR Chest 2 Views COMPARISON: 10/23/2022. FINDINGS: LINES/DEVICES: None. LUNGS: Confluent density is seen in the right upper lobe. This appears stable. In addition there is prominence of the right hilum with right perihilar opacity. Findings are consistent with either severe pneumonitis or neoplastic disease. Recommend follow-up until clear. MEDIASTINUM AND CARDIOVASCULAR STRUCTURES: Cardiac silhouette not enlarged. Central airways and mediastinal contour are unremarkable. BONES AND SOFT TISSUES: Unremarkable. RAD/Chest PA and Lateral IMPRESSION: Able confluent densities right hilum, right perihilar region and right upper lobe. Findings could representing pneumonitis. Neoplastic disease cannot be excluded. Electronically Signed: Girish Clarke MD, CHARBEL at 19:46 EDT ,
== END | disposition home or self-care (01) ==
LOC: MTRAD 12:48
PROVIDERS: PCP Family Medicine; Referring Provider Nurse Practitioner Family; Visit Provider Nurse Practitioner Family
DX: J18.9 Pneumonia, unspecified organism (principal)
CPT/HCPCS: 71046

== ENCOUNTER → 2022-11-09 | Outpatient (CLI) | payer MEDICARE, SELFPAY ==
--- NOTE | 2022-11-09 12:48 | RAD_ITS ---
STUDY: X-RAY CHEST REASON FOR EXAM: Female, 72 years old. Recent pneumonia; please compare most recent results. TECHNIQUE: PA and lateral views of the chest. COMPARISON: Comparison is made with prior study October 28, 2022. FINDINGS: Hyperinflation. Since prior examination, there has been improved aeration of the right upper lobe infiltration. There now is evidence of a 1.2 cm x 1.5 cm cavitated density in the infiltration. 1.2 cm x 1.6 cm nodule is seen in the right middle lobe adjacent to the minor fissure. This also evidence of a 1.6 cm x 1.3 cm nodule in the right lower lobe. The left lung is clear. There is no demonstrated pleural abnormality. Normal size heart. Normal mediastinum and yifan. Normal visualized pulmonary arteries. Normal visualized aortic arch and descending thoracic aorta. Normal visualized thoracic spine. Normal visualized ribs, clavicles, and shoulders. There is no demonstrated abnormality of the visualized soft tissue structures of the upper abdomen. RAD/Chest PA and Lateral IMPRESSION: Persistent right upper lobe infiltrate with focal cavitated nodule. Nodular density in the right middle lobe adjacent to the right minor fissure as well as the right lower lobe. Correlation with a CT scan is recommended for further evaluation. Electronically Signed: Óscar Orlando MD at 15:46 EDT ,
== END | disposition home or self-care (01) ==
PROVIDERS: PCP Family Medicine; Referring Provider Nurse Practitioner Family; Visit Provider Nurse Practitioner Family
DX: J18.9 Pneumonia, unspecified organism (principal)
CPT/HCPCS: 71046

== ENCOUNTER → 2022-11-10 | Outpatient (CLI) | payer MEDICARE, SELFPAY ==
--- NOTE | 2022-11-10 09:41 | CT_ITS ---
STUDY: CT CHEST WITH CONTRAST REASON FOR EXAM: Female, 72 years old. Chest xray with evidence of 2 lung nodules; need for further eval RADIATION DOSAGE (If Supplied By Facility): CTDIvol = ( 8.94 ) mGy, DLP = ( 163.64 ) mGycm TECHNIQUE: Transaxial imaging was performed following intravenous administration of IV 75mL Isovue-370. Multiplanar coronal and sagittal images were reformatted. Individualized dose optimization techniques were used for this CT. COMPARISON: Comparison is made with prior study dated October 23, 2022. FINDINGS: CHEST Persistent dense consolidation in the peripheral lateral aspect of the right upper lobe. This has improved as compared to prior examination. There are 2 tiny cystic changes within the consolidation suggestive of possible necrosis. Persistent patchy infiltrates in the right lower lobe although there has been improvement. Persistent focal infiltration in the superior medial segment of the left lower lobe with areas of cavitation. Further follow-up recommended. There is no demonstrated pleural abnormality. Normal heart and pericardium. Normal mediastinum. Normal hilar regions. Normal unenhanced pulmonary arteries. Normal aorta arch and descending thoracic aorta. There is demineralization of the thoracic spine. There is no demonstrated abnormality of the visualized upper abdomen. CT/Chest WITH Contrast IMPRESSION: Persistent consolidation in the right upper lobe as well as the right lower lobe and the superior medial segment of the left lower lobe. Further follow-up recommended. Electronically Signed: Óscar Orlando MD at 10:28 EDT ,
== END | disposition home or self-care (01) ==
LOC: CT 09:40
PROVIDERS: PCP Family Medicine; Referring Provider Nurse Practitioner Family; Visit Provider Nurse Practitioner Family
DX: R91.8 Other nonspecific abnormal finding of lung field (principal)
CPT/HCPCS: 71260; Q9967; A4216

== ENCOUNTER → 2022-11-12 | Outpatient (CLI) | payer MEDICARE, SELFPAY ==
[2022-11-12 15:22] LABS: Absolute Lymphocyte Count 1.18 X10^3/uL (0.83-4.51); Absolute Neutrophil Count 11.6 X10^3/uL (2.0-7.7); Basophil# 0.05 X10^3/uL; Basophil% 0.4 % (0-1); Eosinophil# 0.21 X10^3/uL; Eosinophils% 1.5 % (0-5); Hemoglobin 9.9 g/dL (12.0-15.0); Lymphocyte # 1.18 X10^3/ul (0.83-4.51); Lymphocyte % 8.4 % (19-41); Mean Corp Hgb Conc 31.9 g/dL (32-36); Mean Corpuscular Hgb 29.5 pg (27.0-32.0); Mean Corpuscular Volume 92.3 fL (81-99); Mean Platelet Vol. 10.9 fl (6.2-12.0); Monocyte# 0.91 X10^3/uL; Monocyte% 6.5 % (0-10); NRBC Flagged by Analyzer 0 % (0-5); Neutrophil # 11.61 X10^3/uL (2.7-7.7); Neutrophil % 82.6 % (47-70); Platelet Count 316 K/mm3 (150-450); RBC Distribution Width CV 15.9 % (11.6-14.6); RBC Distribution Width SD 53.1 fl (35.1-43.9); Red Blood Count 3.36 M/mm3 (4.2-5.4)
[2022-11-12 15:46] LABS: Anion Gap 8 (5-15); BUN 14 mg/dL (7-18); BUN/Creat Ratio 22.6 RATIO (10-20); Chloride 105 mmol/L (98-107); Creatinine, Serum 0.62 mg/dL (0.55-1.02); EST Glomerular Filtration Rate 101 mL/min (>60); Est Glom Filt Rate - Afr Amer 122 mL/min (>60); Ferritin 132 ng/mL (8-252); Glucose 101 mg/dL (74-106); Iron 16 ug/dL (50-170); Potassium 4.1 mmol/L (3.5-5.1); Sodium Level 136 mmol/L (136-145)
== END | disposition home or self-care (01) ==
LOC: MFPLAB 11:57
PROVIDERS: PCP Family Medicine; Visit Provider Family Medicine
DX: D64.9 Anemia, unspecified (principal); J18.9 Pneumonia, unspecified organism
CPT/HCPCS: 36415; 80048; 82728; 83540; 85025

== ENCOUNTER → 2022-11-16 | Outpatient (CLI) | payer MEDICARE, SELFPAY | END | disposition home or self-care (01) | LOC: MFPLAB 09:16 | PROVIDERS: PCP Family Medicine; Visit Provider Nurse Practitioner Family | DX: J18.9 Pneumonia, unspecified organism (principal) | CPT/HCPCS: 87070; 87205 ==

== ENCOUNTER → 2022-11-19 | Outpatient (CLI) | payer MEDICARE, SELFPAY ==
--- NOTE | 2022-11-19 13:45 | ECHOD_ITS ---
Reason For Study: AORTIC INSUFFICIENCY Procedure This was a 2D Doppler, Color Flow transthoracic echocardiogram. Exam performed in department. Left Ventricle Normal LV size. Apical false tendon noted. Left ventricular systolic function is normal. The estimated ejection fraction is 65 %. No regional wall motion abnormalities noted. Right Ventricle Normal RV size. Normal systolic function. Atria Normal left atrium. Normal right atrium. Mitral Valve Normal mitral valve. Mild (1+) eccentric mitral valve insufficiency. Tricuspid Valve Normal tricuspid valve. Mild tricuspid valve insufficiency. Aortic Valve Moderate focal aortic valve calcification. Bicuspid aortic valve. Peak aortic valve gradient 31 mmHg. Mean aortic valve gradient 19 mmHg. Pulmonic Valve Normal pulmonic valve. Great Vessels Mildly dilated aortic root. The pulmonary artery is normal size. Normal inferior vena cava. Pericardium/Pleural No pericardial effusion. MMode/2D Measurements & Calculations LVIDd: 3.8 cm IVSd: 1.1 cm LVOT diam: 2.0 cm LVIDs: 2.8 cm LVPWd: 1.0 cm LVOT area: 3.3 cm2 RVDd: 3.1 cm FS: 26.4 % Ao root diam: 2.9 cm LAV(MOD-bp): 32.8 ml LVAd ap4: 22.1 cm2 LAV(MOD-bp) Indexed: 20.6 ml/m2 LVLd ap4: 6.7 cm LAV(MOD-sp2): 31.0 ml EDV(MOD-sp4): 59.3 ml LAV(MOD-sp4): 34.8 ml EDV(sp4-el): 61.8 ml LVAs ap4: 11.2 cm2 LVLs ap4: 5.2 cm ESV(MOD-sp4): 20.3 ml ESV(sp4-el): 20.3 ml EF(MOD-sp4): 65.8 % EF(sp4-el): 67.2 % SV(MOD-sp4): 39.0 ml SV(sp4-el): 41.6 ml LA A4 area: 13.5 cm2 LA dimension(2D): 2.8 cm RA A4 area: 13.0 cm2 Time Measurements MV dec time: 0.19 sec Doppler Measurements & Calculations MV E max clay: 64.8 cm/sec Lat Peak E' Clay: 10.8 cm/sec Med Peak E' Clay: 6.6 cm/sec MV A max clay: 64.1 cm/sec E/E' lat: 6.0 E/E' med: 9.8 MV E/A: 1.0 MV V2 max: 76.5 cm/sec Ao V2 max: 279.9 cm/sec MV max P.3 mmHg MV dec slope: 357.7 cm/sec2 Ao max P.4 mmHg MV V2 mean: 54.1 cm/sec Ao V2 mean: 206.7 cm/sec MV mean P.2 mmHg Ao mean P.0 mmHg MV V2 VTI: 24.6 cm Ao V2 VTI: 72.1 cm AV (velocity ratio): 0.29 MVA(VTI): 2.8 cm2 YASMIN(I,D): 0.96 cm2 YASMIN(V,D): 1.0 cm2 LV V1 max: 88.4 cm/sec MR max clay: 416.3 cm/sec SV(LVOT): 69.3 ml LV V1 max P.1 mmHg MR max P.3 mmHg LV V1 mean P.9 mmHg LV V1 mean: 64.8 cm/sec LV V1 VTI: 21.2 cm ECHO/Echo Complete Interpretation Summary Normal LV size. Left ventricular systolic function is normal. The estimated ejection fraction is 65 %. Mildly dilated aortic root. Mean aortic valve gradient 19 mmHg. Bicuspid aortic valve. To the previous the above is essentially unchanged. Ordering Physician: Umu Damon Referring Physician: Umu Damon Performed By: Keisha Clarke RCS
== END | disposition home or self-care (01) ==
LOC: CVS 13:41
PROVIDERS: PCP Family Medicine; Referring Provider Physician Assistant Medical; Visit Provider Physician Assistant Medical
DX: Q23.1 Congenital insufficiency of aortic valve (principal)
CPT/HCPCS: 93306

== ENCOUNTER → 2022-12-22 | Outpatient (CLI) | payer MEDICARE, SELFPAY ==
--- NOTE | 2022-12-22 10:13 | RAD_ITS ---
INDICATION: lumbar spondylolsis EXAMINATION/TECHNIQUE: X-RAY - XR Spine Lumbar Comp W/ Bending Min 6 Views COMPARISON: Sacrum x-rays from the same day. FINDINGS: Mild anterolisthesis of L4 relative to L5, high grade 1. No visible pars defect though assessment is limited with suboptimal oblique views. There is moderate intervertebral disc height loss at this level and this is suspected represent degenerative spondylosis. Mild intervertebral disc height loss also noted L5-S1. No significant degenerative endplate changes or facet arthropathy. Soft tissue shadows are normal. Visualized lung bases are clear. RAD/L/S Spine w Bend Min 6 Vw IMPRESSION: Likely degenerative anterolisthesis of L4 on L5 with no visible pars defect on this somewhat limited assessment. L4-5 and L5-S1 intervertebral disc height loss. No significant degenerative endplate changes. Electronically Signed: Rasheed May DO at 21:51 EDT ,
--- NOTE | 2022-12-22 10:13 | RAD_ITS ---
INDICATION: lumbar spondylolsis EXAMINATION/TECHNIQUE: X-RAY - XR Sacrum/Coccyx Min 2 Views COMPARISON: Lumbar spine x-rays December 22, 2022. FINDINGS: SACRUM/COCCYX: No displaced fracture, destructive or sclerotic lesions. Note that overlapping bowel shadows may however obscure fine detail in the frontal view. SACRO-ILIAC JOINTS: The articular structures are unremarkable. SOFT TISSUES: No soft tissue swelling or gas. RAD/Sacrum-Coccyx min 2 Views IMPRESSION: Unremarkable sacro-coccygeal spine. Electronically Signed: Rasheed May DO at 20:53 EDT ,
== END | disposition home or self-care (01) ==
LOC: MTRAD 10:13
PROVIDERS: PCP Family Medicine; Referring Provider Nurse Practitioner Family; Visit Provider Nurse Practitioner Family
DX: M43.06 Spondylolysis, lumbar region (principal)
CPT/HCPCS: 72114; 72220

== ENCOUNTER → 2023-02-15 | Outpatient (CLI) | payer MEDICARE, SELFPAY ==
--- NOTE | 2023-02-13 13:40 | MRI_ITS ---
EXAM: MR LUMBAR SPINE WITHOUT INTRAVENOUS CONTRAST CLINICAL INDICATION: lumbar spondylolysis TECHNIQUE: Multiplanar and multisequence MR images of the lumbar spine without intravenous contrast. COMPARISON: X-ray 12/22/2022. FINDINGS: VERTEBRAE: Chronic superior endplate fracture at T12. Vertebral body heights are otherwise maintained. Normal posterior elements. There is preservation of the normal lumbar lordosis. SPINAL CORD: Unremarkable. Normal position and signal intensity of the conus medullaris. SOFT TISSUES: Unremarkable. DISCS/SPINAL CANAL/NEURAL FORAMINA: T12-L1: Normal disc height and morphology. Normal bilateral facet joints. Normal central canal. Normal bilateral lateral recesses. Normal intervertebral neural foramina. L1-2: Normal disc height and morphology. Normal bilateral facet joints. Normal central canal. Normal bilateral lateral recesses. Normal intervertebral neural foramina. L2-3: Disc dehydration. Normal bilateral facet joints. Normal central canal. Normal bilateral lateral recesses. Normal intervertebral neural foramina. L3-4: Disc dehydration and mild disc space narrowing. Normal bilateral facet joints. Normal central canal. Normal bilateral lateral recesses. Normal intervertebral neural foramina. L4-5: Disc dehydration and mild disc space narrowing. 6 mm anterolisthesis. No spondylolysis. Moderate to severe canal stenosis due to anterolisthesis, uncovered disc, facet and ligamentous hypertrophy. Mild foraminal encroachment due to anterolisthesis and uncovered disc. L5-S1: Disc dehydration. Normal bilateral facet joints. Normal central canal. Normal bilateral lateral recesses. Normal intervertebral neural foramina. 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 MRI/Spine Lumbar (Routine) IMPRESSION: L4-5 anterolisthesis and moderate to severe canal stenosis. No compressive disc disease or high-grade foraminal stenosis. Electronically Signed: Dasha Shoemaker MD at 22:08 EDT Reading Location ID and State: [id number] / Tel , Service support ,
== END | disposition home or self-care (01) ==
LOC: MRI 09:13
PROVIDERS: PCP Family Medicine; Referring Provider Nurse Practitioner Family; Visit Provider Nurse Practitioner Family
DX: M43.06 Spondylolysis, lumbar region (principal)
CPT/HCPCS: 72148

== ENCOUNTER → 2023-04-01 | Outpatient (CLI) | payer MEDICARE, SELFPAY ==
--- NOTE | 2023-04-01 13:59 | ECHOD_ITS ---
Reason For Study: BICUSPID AORTIC VALVE Procedure This was a 2D Doppler, Color Flow transthoracic echocardiogram. Exam performed in department. Left Ventricle Normal LV size. Left ventricular systolic function is normal. The estimated ejection fraction is 65 %. No regional wall motion abnormalities noted. Right Ventricle Normal RV size. Normal systolic function. Atria Normal left atrium. Normal right atrium. Mitral Valve Normal mitral valve. Mild (1+) eccentric mitral valve insufficiency. Tricuspid Valve Normal tricuspid valve. Mild to moderate (1-2+) tricuspid valve insufficiency. Pulmonary artery systolic pressure is 44 mmHg. Aortic Valve Aortic valve with a raphae. Peak aortic valve gradient 42 mmHg. Mean aortic valve gradient 26 mmHg. Moderate aortic stenosis. Pulmonic Valve Normal pulmonic valve. Great Vessels Normal aortic root. The pulmonary artery is normal size. Normal inferior vena cava. Pericardium/Pleural No pericardial effusion. MMode/2D Measurements & Calculations LVIDd: 4.2 cm IVSd: 0.84 cm LVOT diam: 2.0 cm LVIDs: 2.9 cm LVPWd: 0.76 cm LVOT area: 3.0 cm2 RVDd: 2.9 cm FS: 31.7 % Ao root diam: 3.4 cm LAV(MOD-bp): 43.0 ml LVAd ap4: 24.8 cm2 LAV(MOD-bp) Indexed: 26.5 ml/m2 LVLd ap4: 7.2 cm LAV(MOD-sp2): 41.5 ml EDV(MOD-sp4): 70.3 ml LAV(MOD-sp4): 40.9 ml EDV(sp4-el): 72.8 ml LVAs ap4: 12.9 cm2 LVLs ap4: 5.6 cm ESV(MOD-sp4): 25.9 ml ESV(sp4-el): 25.6 ml EF(MOD-sp4): 63.2 % EF(sp4-el): 64.8 % SV(MOD-sp4): 44.4 ml SV(sp4-el): 47.1 ml Aortic Valve Planimetry: 0.81 cm2 LA A4 area: 16.1 cm2 LA dimension(2D): 3.4 cm RA A4 area: 15.6 cm2 Time Measurements MV dec time: 0.21 sec Doppler Measurements & Calculations MV E max clay: 84.9 cm/sec Lat Peak E' Clay: 11.6 cm/sec Med Peak E' Clay: 8.2 cm/sec MV A max clay: 71.6 cm/sec E/E' lat: 7.3 E/E' med: 10.3 MV E/A: 1.2 Ao V2 max: 324.5 cm/sec LV V1 max: 82.1 cm/sec SV(LVOT): 64.5 ml Ao max P.1 mmHg LV V1 max P.7 mmHg Ao V2 mean: 242.1 cm/sec LV V1 mean P.6 mmHg Ao mean P.0 mmHg LV V1 mean: 59.1 cm/sec Ao V2 VTI: 82.3 cm LV V1 VTI: 21.3 cm AV (velocity ratio): 0.26 YASMIN(I,D): 0.78 cm2 YASMIN(V,D): 0.77 cm2 PA V2 max: 77.9 cm/sec TR max clay: 313.3 cm/sec TR max P.3 mmHg ECHO/Echo Complete Interpretation Summary Normal LV size. Left ventricular systolic function is normal. The estimated ejection fraction is 65 %. Pulmonary artery systolic pressure is 44 mmHg. Aortic valve with a raphae Mean aortic valve gradient 26 mmHg. Moderate aortic stenosis. Ordering Physician: Umu Damon Referring Physician: KEYONA RUEDA Performed By: Delma Khan RDCS
== END | disposition home or self-care (01) ==
LOC: CVS 13:57
PROVIDERS: PCP Family Medicine; Referring Provider Nurse Practitioner Gerontology; Visit Provider Nurse Practitioner Gerontology
DX: Q23.1 Congenital insufficiency of aortic valve (principal)
CPT/HCPCS: 93306

== ENCOUNTER → 2023-05-31 | Outpatient (CLI) | payer MEDICARE, OTHER, SELFPAY ==
[2023-05-31 10:32] LABS: Hematocrit 41.1 % (37-47); Hemoglobin 13.3 g/dL (12.0-15.0); Mean Corp Hgb Conc 32.4 g/dL (32-36); Mean Platelet Vol. 10.5 fl (6.2-12.0); Platelet Count 198 K/mm3 (150-450); RBC Distribution Width CV 12.9 % (11.6-14.6); RBC Distribution Width SD 47.1 fl (35.1-43.9); Red Blood Count 4.15 M/mm3 (4.2-5.4); White Blood Count 4.7 K/mm3 (4.4-11.0)
[2023-05-31 10:53] LABS: AST(SGOT) 25 U/L (15-37); Alanine Aminotransfer ALT/SGPT 35 U/L (13-56); Albumin, Serum 3.5 g/dL (3.2-5.0); Alkaline Phosphatase 48 U/L (45-117); Anion Gap 2 (5-15); BUN 18 mg/dL (7-18); BUN/Creat Ratio 18.7 RATIO (10-20); Calcium,Total 8.8 mg/dL (8.5-10.1); Chloride 107 mmol/L (98-107); Creatinine, Serum 0.96 mg/dL (0.55-1.02); EST Glomerular Filtration Rate 60 mL/min (>60); Est Glom Filt Rate - Afr Amer 73 mL/min (>60); Globulin 3.5 g/dL (2.2-4.2); Glucose 83 mg/dL (74-106); Potassium 4.2 mmol/L (3.5-5.1); Sodium Level 139 mmol/L (136-145)
[2023-05-31 10:57] LABS: Vitamin B12 1685 pg/mL (211-911)
== END | disposition home or self-care (01) ==
PROVIDERS: Nurse Practitioner Family; PCP Family Medicine; Visit Provider Family Medicine
DX: I10 Essential (primary) hypertension (principal); E53.8 Deficiency of other specified B group vitamins
CPT/HCPCS: 36415; 80053; 82607; 85027

== ENCOUNTER 2024-01-26 08:30 | Day surgery (SDC) | payer MEDICARE, SELFPAY ==
[2024-01-26] VITALS (9 sets, daily range): BP systolic 82–156; BP diastolic 46–84; PULSE 63–68; RESP 16; TEMP 36.1–36.6; O2SAT 97–100; BMI 21.8
--- NOTE | 2024-01-26 08:44 | H&P.OPEN ---
HPI - General General Date of Service: 01/26/24 HPI Narrative MANOJ RAWLS, is a 73 F who presents for a screening colonoscopy. Pt denies any changes since last office visit office visit 12/08/23 HPI HPI: 73-year-old female presents due to constipation and to schedule a screening colonoscopy. Patient last colonoscopy was 13 years ago and [place] negative per patient. Patient states for the last 6 months she has been taking MiraLAX daily. Patient states if she did not take MiraLAX she would go twice a week. With MiraLAX she is having a bowel about every other day but still states they are on the harder side. Patient denies any reflux or nausea or vomiting. Patient does state that if she has not had a bowel movement for several days she will feel bloated. Patient does think she drinks plenty of water and does try to eat a lot of fruits and vegetables unsure about the exact amount of fiber she gets. [facility] Medical History Wears glasses Thyroid disease Non-smoker History of echocardiogram Hypertension Cardiology follow-up encounter Pneumonia Non-rheumatic mitral regurgitation Non-rheumatic tricuspid valve insufficiency Deviated nasal septum Hypothyroidism Graves disease Fibromyalgia Thoracic aortic aneurysm without rupture Essential hypertension Nonrheumatic aortic (valve) stenosis Bicuspid aortic valve Home Medications ?Medication ?Instructions ?Recorded ?Last Taken ?Type losartan 25 mg tablet 25 mg PO DAILY 06/20/19 01/26/24 07:45 History vitamin B complex (B 1 tab PO DAILY 06/22/19 Unknown History Complex-Vitamin B12 tablet) cholecalciferol (vitamin D3) 25 25 mcg PO DAILY 08/15/21 Unknown History mcg (1,000 unit) tablet propranolol 20 mg tablet 20 mg PO BID 08/15/21 01/26/24 07:45 History mirtazapine 7.5 mg tablet 7.5 mg PO DAILY 11/06/22 Unknown History progesterone micronized 200 mg 200 mg PO QHS 11/06/22 Unknown History capsule levothyroxine 112 mcg tablet 88 mcg PO DAILY 03/15/23 01/26/24 05:15 History Allergy/AdvReac Type Severity Reaction Status Date / Time zolpidem (From Ambien) AdvReac Severe Muscle Verified 01/26/24 08:43 Aches liothyronine (From Cytomel) AdvReac Unknown Unknown Verified 01/26/24 08:43 Sulfa (Sulfonamide AdvReac Unknown Unknown Verified 01/26/24 08:43 Antibiotics) Family History Father Cancer Leukemia Surgical History History of tubal ligation History of tonsillectomy Social History Smoking Status: Never smoker alcohol intake: never substance use type: does not use caffeine: Yes Past Medical/Surgical History Planned Operation Planned Operative Procedure(s): COLONOSCOPY Previous Hospitalizations/Surgeries HX Hospitalizations: No Any Problems With Anesthesia: No You/Your Family Experience Fever (Hyperthermia) With Anes: No Cholinesterase deficiency: No Cardiovascular Hx Hypertension: Yes Respiratory Hx Sleep Apnea: No Hx Respiratory Tract Infection/Cold (presently): No Do You Snore Loudly (louder than talking or can be heard): No Do You Often Feel Tired/ Fatigued/ Sleepy Dring Daytime?: No Has Anyone Observed You Stop Breathing During Sleep?: No Result (for STOP score): Negative Smoking Status: Never smoker Neurological Does patient have nerve stimulator: No Reproduction : No Allergies zolpidem (From Ambien) Adverse Reaction (Severe, Verified 01/26/24 08:43) Muscle Aches liothyronine (From Cytomel) Adverse Reaction (Unknown, Verified 01/26/24 08:43) Unknown Sulfa (Sulfonamide Antibiotics) Adverse Reaction (Unknown, Verified 01/26/24 08:43) Unknown Discharge Is Pt Admitted From a Retirement, or a Longterm: No Who Could Help: ALBERTO After D/C, Where Do you Plan to Go: Return Home Physical Exam Const alert, oriented x3 and no apparent distress HEENT normocephalic and head/scalp atraumatic Resp normal respiratory effort Cardio regular rate GI soft to palpation and non-tender; Negative for non-distended Palpation: Negative for guarding Extremity no clubbing, cyanosis or edema Skin no rashes or lesions noted Neuro CN's II-XII intact bilaterally Psych mental status grossly normal Assessment & Plan Assessment/Plan (1) Screening for colon cancer: Surgery Risks - Colonoscopy I discussed with the patient the risks of the procedure: Yes Risks Include but are not Limited To: Risks include but are not limited to: Bleeding, perforation requiring further surgery, inability to complete colonoscopy requiring barium enema.
--- NOTE | 2024-01-26 08:50 | PCM.PRE.AN2 ---
ASA Classification* ASA Classification ASA Classification: 3 Assessment & Plan Anesthesia* Anesthesia Assessment Anesthesia Assessment: Discussed sedation and/or anesthesia options, risks, benefits, and alternatives with patient/parents/legal guardian/POA. Questions invited. The patient/parents/legal guardian/POA seems to understand and agrees to proceed with anesthesia plan. Reviewed the physical assessment, medical history, allergy history and patient home medications list prior to surgery/procedure/anesthetic and documented any changes. Performed airway and anesthesia risk assessments. Anesthesia Type Anesthesia Type: MAC Anesthesia Focused Assessment* Temperature: 97 F Pulse Rate: 67 Blood Pressure: 156/84 Respiratory Rate: 16 Pulse Ox: 100 Airway Assessment Mouth opens: >3 cm Mallampati Score: II Focused Labs Anesthesia Preop lab: CBC WBC 4.7 K/mm3 (4.4-11.0) 05/31/23 09:31 RBC 4.15 M/mm3 (4.2-5.4) L 05/31/23 09:31 Hgb 13.3 g/dL (12.0-15.0) 05/31/23 09:31 Hct 41.1 % (37-47) 05/31/23 09:31 Plt Count 198 K/mm3 (150-450) 05/31/23 09:31 CHEMISTRY Potassium 4.2 mmol/L (3.5-5.1) 05/31/23 09:31 Sodium 139 mmol/L (136-145) 05/31/23 09:31 BUN 18 mg/dL (7-18) 05/31/23 09:31 Creatinine 0.96 mg/dL (0.55-1.02) 05/31/23 09:31 Glucose 83 mg/dL (74-106) 05/31/23 09:31 TSH 0.78 uIU/mL (0.358-3.74) 10/23/22 13:41 COAG Pre-Assessment Diagnosis/Proposed Procedure Planned Operative Procedure(s): COLONOSCOPY Anesthesia History 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 When Was Last Pacemaker Check QUESTION #4 FULL TEXT: You/Your Family Experience fever (hyperthermia) with Anesthesia Last Oral Intake Last Oral intake: Last Oral Intake NPO since 07:00 01/26/24 08:45 Meds taken in AM with sips of Yes 01/26/24 08:45 water? Meds patient instructed to SEE MAR 01/26/24 08:45 take am of surgery PONV PONV - rubber goods assembler: PONV - rubber goods assembler Female Yes 01/20/24 14:44 HX of Motion Sickness No 01/20/24 14:44 HX of N/V After Surgery No 01/20/24 14:44 Non-Smoker Yes 01/20/24 14:44 Duration of Surgery greater No 01/20/24 14:44 than 60 minutes Number of Risk Factors 2 01/20/24 14:44 PONV Score Moderate Risk 01/20/24 14:44 Height & Weight Height & Weight: Anesthesia: Height & Weight Height 5 ft 5 in 01/26/24 08:45 Weight: 59.421 kg 01/26/24 08:45 Body Mass Index (BMI) 21.8 01/26/24 08:45 Respiratory Assessment Respiratory Assessment - rubber goods assembler: Respiratory Tract Infection Hx - rubber goods assembler Hx Respiratory Tract Infection No 01/26/24 08:45 STOP Sleep Apnea STOP Sleep Apnea - rubber goods assembler: STOP Sleep Apnea - rubber goods assembler Hx Hypertension Yes 01/26/24 08:45 Hx Sleep Apnea No 01/26/24 08:45 CPAP BIPAP Do you snore loudly (louder No 01/26/24 08:45 than talking or can be heard Do you often feel tired/ No 01/26/24 08:45 fatigued/ sleepy during daytime? Has anyone observed you stop No 01/26/24 08:45 breathing during sleep? STOP Results Negative 01/26/24 08:45 QUESTION #5 FULL TEXT : Do you snore loudly (louder than talking or can be heard through closed doors)? Tobacco Use History Tobacco Use History - rubber goods assembler: Tobacco Use History - rubber goods assembler Tobacco Use Smoking Status Never smoker 01/26/24 08:45 Hx Tobacco Use No 01/20/24 14:44 Years Smoking Packs Smoked per Day Smoking Cessation Date was within the last 15 years Hx Smoking Cessation Date Hx Smoking Cessation Counseling Hematologic Medial History Hematologic Hx - rubber goods assembler: Hematologic Medical Hx - assessment counselor Hx of Blood Transfusion No 01/20/24 14:44 Hx of Transfusion in last 3 No 01/20/24 14:44 Months Date of Last Transfusion (if within last 3 months) Ever experience any problems No 01/20/24 14:44 with transfusion(s)? Specify any problems Hx of Preganancy in last 3 N/A 01/20/24 14:44 Months Nurse Filling Out Transfusion SFRANTZ 01/20/24 14:44 & Questions: Date: 01/20/24 01/20/24 14:44 Time: 14:47 01/20/24 14:44 Patient unable to answer at this time (ie. confused, unrespo /Reproduction History /Reproductive History - rubber goods assembler: /Reproductive Hx- rubber goods assembler Hx Now No 01/26/24 08:45 Gestational Age (in weeks): EDC: Hx Hx Para Hx Section SAB No 01/20/24 14:44 Active Medications Active Medications: Current Medications Generic Name Dose Route Start Last Admin Trade Name Freq PRN Reason Stop Dose Admin Lactated Ringer's 1,000 mls @ 15 mls/hr 01/26/24 08:45 IV .Q48H LIZ PFSH Medical History Wears glasses Thyroid disease Non-smoker History of echocardiogram Hypertension Cardiology follow-up encounter Pneumonia Non-rheumatic mitral regurgitation Non-rheumatic tricuspid valve insufficiency Deviated nasal septum Hypothyroidism Graves disease Fibromyalgia Thoracic aortic aneurysm without rupture Essential hypertension Nonrheumatic aortic (valve) stenosis Bicuspid aortic valve Home Medications ?Medication ?Instructions ?Recorded ?Last Taken ?Type losartan 25 mg tablet 25 mg PO DAILY 06/20/19 01/26/24 07:45 History vitamin B complex (B 1 tab PO DAILY 06/22/19 Unknown History Complex-Vitamin B12 tablet) cholecalciferol (vitamin D3) 25 25 mcg PO DAILY 08/15/21 Unknown History mcg (1,000 unit) tablet propranolol 20 mg tablet 20 mg PO BID 08/15/21 01/26/24 07:45 History mirtazapine 7.5 mg tablet 7.5 mg PO DAILY 11/06/22 Unknown History progesterone micronized 200 mg 200 mg PO QHS 11/06/22 Unknown History capsule levothyroxine 112 mcg tablet 88 mcg PO DAILY 03/15/23 01/26/24 05:15 History Allergy/AdvReac Type Severity Reaction Status Date / Time zolpidem (From Ambien) AdvReac Severe Muscle Verified 01/26/24 08:43 Aches liothyronine (From Cytomel) AdvReac Unknown Unknown Verified 01/26/24 08:43 Sulfa (Sulfonamide AdvReac Unknown Unknown Verified 01/26/24 08:43 Antibiotics) Family History Father Cancer Leukemia Surgical History History of tubal ligation History of tonsillectomy Social History Smoking Status: Never smoker alcohol intake: never substance use type: does not use caffeine: Yes Review of Systems (Anesthesia) ROS Narrative System reviewed and no additional complaints, except as documented.
[2024-01-26] MEDS: Lactated Ringers 1,000 ML 15 ML IV (08:53)
--- NOTE | 2024-01-26 10:00 | OP.CCLET_ITS ---
01/26/2024 Harman Flores [address] [place] [address] Re : Colonoscopy procedure for Milka Sow Dear Dr. Flores This procedure was performed on Friday, January 26, 2024. My impressions and recommendations are as follows: Impressions : - One less than 5 mm polyp in the ascending colon, removed with a cold biopsy forceps. Resected and retrieved. - The examination was otherwise normal on direct and retroflexion views. Recommendations : - Discharge patient to home. - Resume previous diet. - Continue present medications. - Await pathology results. - Repeat colonoscopy in 5 years for surveillance based on pathology results. My findings are described in the full procedure note, which is enclosed. If I can be of further assistance, please feel free to contact me at Doctor phone number(s): , Work: . Sincerely, MD Aaliyah Fontaine MD 01/26/2024 9:59:37 AM This report has been signed electronically.
--- NOTE | 2024-01-26 10:00 | COLBX_PTH ---
PATIENT: MANOJ RAWLS LOC: EN U#:[id number] AGE/SX: 73/F ROOM: RE01/26/[address]: Dr. Aaliyah Fernández MD : 1950 BED: DIS: 01/26/2024 SPEC #: [id number] RECD: 01/26/24 13:41 STATUS: TRUDI JASPREET #: [id number] EDWAR: 01/26/24 10:[address]: Aaliyah Fernández DEPT: SURGICAL PATHOLOGY RECD BY: Cristhian Davidson ENTERED: 01/27/24 08:13 SP TYPE: COLON BX OT DR: Dr. Jorge A Flores MD Tissues: Ascending colon Procedures: Surgery Specimen Level IV HEADER OPERATION: Colonoscopy with biopsy PRE-OP DIAGNOSIS: Screening for colon cancer TISSUE SUBMITTED: Ascending colon polyp biopsy MICROSCOPIC DIAGNOSIS Ascending colon polyp, biopsy: Tubular adenoma. GABY/ 01/28/2024 MICROSCOPIC DESCRIPTION Slides are reviewed. GROSS DESCRIPTION Received in fixative is one container labeled with the patient's name and designated Ascending colon polyp. The specimen consists of one irregular fragment of light hart soft tissue that measures 0.3 x 0.3 x 0.1 cm. The specimen is totally submitted in one cassette. GABY/ 01/27/2024 TC:1 CPT:67029
--- NOTE | 2024-01-26 10:00 | OP.COLON_ITS ---
Patient Name: Milka Sow Procedure Date: 01/26/2024 9:25 AM Date of : 1950 Age: 73 Procedure: Colonoscopy Indications: Screening for colorectal malignant neoplasm Providers: Aaliyah Fernández MD Referring MD: Aaliyah Fernández MD Medicines: Monitored Anesthesia Care Patient Profile: Last Colonoscopy: more than 10 years ago. Complications: No immediate complications. Procedure: Pre-Anesthesia Assessment: - Prior to the procedure, a History and Physical was performed, and patient medications and allergies were reviewed. The patient's tolerance of previous anesthesia was also reviewed. The risks and benefits of the procedure and the sedation options and risks were discussed with the patient. All questions were answered, and informed consent was obtained. Prior Anticoagulants: The patient has taken no anticoagulant or antiplatelet agents. ASA Grade Assessment: Per anesthesia. After reviewing the risks and benefits, the patient was deemed in satisfactory condition to undergo the procedure. After I obtained informed consent, the scope was passed under direct vision. Throughout the procedure, the patient's blood pressure, pulse, and oxygen saturations were monitored continuously. The colonoscope was introduced through the anus and advanced to the terminal ileum. The colonoscopy was performed without difficulty. The patient tolerated the procedure well. The quality of the bowel preparation was good. Scope In: 9:37:03 AM Scope Withdrawal Time 0 hours 7 minutes 59 seconds Scope Out: 9:53:33 AM Total Procedure Duration Time 0 hours 16 minutes 30 seconds Findings: The perianal and digital rectal examinations were normal. A less than 5 mm polyp was found in the ascending colon. The polyp was sessile. The polyp was removed with a cold biopsy forceps. Resection and retrieval were complete. The exam was otherwise without abnormality on direct and retroflexion views. Impression: - One less than 5 mm polyp in the ascending colon, removed with a cold biopsy forceps. Resected and retrieved. - The examination was otherwise normal on direct and retroflexion views. Recommendation: - Discharge patient to home. - Resume previous diet. - Continue present medications. - Await pathology results. - Repeat colonoscopy in 5 years for surveillance based on pathology results. Procedure Code(s): --- Professional --- 83505, PT, Colonoscopy, flexible; with biopsy, single or multiple Diagnosis Code(s): --- Professional --- Z12.11, Encounter for screening for malignant neoplasm of colon D12.2, Benign neoplasm of ascending colon CPT copyright 2021 [employer]. All rights reserved. The codes documented in this report are preliminary and upon malted milk masher review may be revised to meet current compliance requirements. MD Aaliyah Fontaine MD 01/26/2024 9:59:37 AM This report has been signed electronically. Number of Addenda: 0 Note Initiated On: 01/26/2024 9:25 AM
--- NOTE | 2024-01-26 10:08 | PCM.POST.ANE ---
Anesthesia: Postop Eval I Current Vital Signs Temperature: 97.4 F Pulse Rate: 68 Blood Pressure: 88/53 Respiratory Rate: 16 Pulse Ox: 100 Oxygen Delivery Method: Room Air Assessment Airway patent: Yes Spontaneous unlabored respirations: Yes Mental status: Asleep nausea: No Vomiting: No Anesthesia Complication: No Fluid Hydration Crystalloid volume administer (ml): 700 Total IV fluid infused: 700 Progress Note Anesthesia document: Postop Eval 1 completed: Yes
--- NOTE | 2024-01-26 10:32 | PCM.POSTANE2 ---
Anesthesia Postop Eval I Sum Postop Eval Completion status Anesthesia document: Postop Eval 1 completed: Yes Anesthesia Postop Eval I Summary Anesthesia Postop Eval I Summary: Anesthesia Postop Eval I: Assessment Summary Airway patent Yes 01/26/24 10:09 [email or web address] Spontaneous unlabored Yes 01/26/24 10:09 [email or web address] respirations Mental status Asleep 01/26/24 10:09 [email or web address] nausea No 01/26/24 10:09 [email or web address] Vomiting No 01/26/24 10:09 [email or web address] Anesthesia Postop Eval I: Fluid Summary Crystalloid volume administer 700 01/26/24 10:09 [email or web address] (ml) Colloids volume administered ( ml) Blood Product volume administered (ml) Total IV fluid infused 700 01/26/24 10:09 [email or web address] Anesthesia Postop Eval I: Summary Notes Anesthesia Complication No 01/26/24 10:09 [email or web address] Anesthesia Complication Comment: Post-operative progress note Anesthesia: Postop Eval II Evaluation Mental status: Awake Pain Level: 0 nausea: No Vomiting: No Complications Anesthesia Complication: No
== END 2024-01-26 11:36 | disposition home or self-care (01) ==
LOC: EN 08:31 → AC 08:31
PROVIDERS: PCP Family Medicine; Referring Provider Surgery; Visit Provider Surgery
PROC: 0DJD8ZZ Inspection of Lower Intestinal Tract, Via Natural or Artificial Opening Endoscopic (ICD-10-PCS; CPT 45378; principal; 2024-01-26 09:55)
DX: Z12.11 Encounter for screening for malignant neoplasm of colon (principal); E03.9 Hypothyroidism, unspecified; D12.2 Benign neoplasm of ascending colon; I10 Essential (primary) hypertension; Z79.899 Other long term (current) drug therapy; Z79.890 Hormone replacement therapy
CPT/HCPCS: 45380; 88305; J7120; J2405

== ENCOUNTER → 2024-05-10 | Outpatient (CLI) | payer MEDICARE, SELFPAY | END | disposition home or self-care (01) | LOC: OPBI 09:46 | PROVIDERS: PCP Family Medicine; Referring Provider Family Medicine; Visit Provider Family Medicine | DX: Z12.31 Encounter for screening mammogram for malignant neoplasm of breast (principal) | CPT/HCPCS: 77063; 77067 ==

== ENCOUNTER → 2024-05-29 | Outpatient (CLI) | payer MEDICARE, SELFPAY ==
[2024-05-29 12:14] LABS: Hematocrit 38.3 % (37-47); Hemoglobin 12.5 g/dL (12.0-15.0); Mean Corp Hgb Conc 32.6 g/dL (32-36); Mean Corpuscular Hgb 32.1 pg (27.0-32.0); Mean Corpuscular Volume 98.2 fL (81-99); Mean Platelet Vol. 10.6 fl (6.2-12.0); Platelet Count 206 K/mm3 (150-450); RBC Distribution Width CV 12.6 % (11.6-14.6); RBC Distribution Width SD 45.7 fl (35.1-43.9); White Blood Count 5.5 K/mm3 (4.4-11.0)
[2024-05-29 12:41] LABS: Vitamin B12 573 pg/mL (211-911)
[2024-05-29 13:51] LABS: ALB/GLOB Ratio 1.1 RATIO (0.9-2.4); AST(SGOT) 26 U/L (15-37); Alanine Aminotransfer ALT/SGPT 29 U/L (13-56); Albumin, Serum 3.6 g/dL (3.2-5.0); Alkaline Phosphatase 43 U/L (45-117); Anion Gap 6 (5-15); BUN 18 mg/dL (7-18); BUN/Creat Ratio 18.5 RATIO (10-20); Calcium,Total 8.9 mg/dL (8.5-10.1); Chloride 109 mmol/L (98-107); Cholesterol 199 mg/dL (200); Creatinine, Serum 0.97 mg/dL (0.55-1.02); EST Glomerular Filtration Rate 59 mL/min (>60); Est Glom Filt Rate - Afr Amer 72 mL/min (>60); Ferritin 90 ng/mL (8-252); Globulin 3.2 g/dL (2.2-4.2); Glucose 86 mg/dL (74-106); High Density Lipoprotein 70 mg/dL; Iron 115 ug/dL (50-170); Potassium 4.1 mmol/L (3.5-5.1); Protein, Total 6.8 g/dL (6.4-8.2); Sodium Level 140 mmol/L (136-145); Triglycerides 174 mg/dL; Very Low Density Lipoprotein 35 mg/dL (5-40)
== END | disposition home or self-care (01) ==
LOC: MTLAB 10:29
PROVIDERS: PCP Family Medicine; Referring Provider Family Medicine; Visit Provider Family Medicine
DX: I10 Essential (primary) hypertension (principal); M85.80 Other specified disorders of bone density and structure, unspecified site; D64.9 Anemia, unspecified; E03.9 Hypothyroidism, unspecified
CPT/HCPCS: 36415; 80053; 80061; 82306; 82607; 82728; 83540; 84443; 85027

== ENCOUNTER → 2024-07-03 | Outpatient (CLI) | payer MEDICARE, SELFPAY ==
--- NOTE | 2024-07-03 16:48 | RAD_ITS ---
STUDY: X-RAY CHEST REASON FOR EXAM: Female, 74 years old. COUGH TECHNIQUE: PA and lateral views of the chest. COMPARISON: 11/09/2022 FINDINGS: There is hyperinflation of the lungs consistent with chronic obstructive lung disease (COPD). There is no demonstrated pleural abnormality. Normal size heart. Normal mediastinum and yifan. Normal visualized pulmonary arteries. Normal visualized aortic arch and descending thoracic aorta. Normal visualized thoracic spine. Normal visualized ribs, clavicles, and shoulders. There is no demonstrated abnormality of the visualized soft tissue structures of the upper abdomen. RAD/Chest PA and Lateral IMPRESSION: Emphysema without pneumonia or atelectasis Electronically Signed: Jeremy Lambert MD at 13:39 EST ,
== END | disposition home or self-care (01) ==
PROVIDERS: PCP Family Medicine; Referring Provider Family Medicine; Visit Provider Family Medicine
DX: R05.9 Cough, unspecified (principal)
CPT/HCPCS: 71046

== ENCOUNTER → 2024-07-18 | Outpatient (CLI) | payer MEDICARE, SELFPAY ==
--- NOTE | 2024-07-18 09:59 | ECHOD_ITS ---
Reason For Study: Evaluate Aortic Stenosis Procedure This was a 2D Doppler, Color Flow transthoracic echocardiogram. Exam performed in department. Left Ventricle Normal LV size. Left ventricular systolic function is normal. The left ventricular ejection fraction is 60 %. No regional wall motion abnormalities noted. Right Ventricle Normal RV size. Normal systolic function. Atria Normal left atrium. Normal right atrium. Mitral Valve Bileaflet diffuse mitral valve thickening. Mild (1+) eccentric mitral valve insufficiency. Tricuspid Valve Normal tricuspid valve. Mild to moderate (1-2+) tricuspid valve insufficiency. Pulmonary artery systolic pressure is 43 mmHg. Aortic Valve Trisinus/trileaflet aortic valve. Moderate diffuse aortic valve thickening. Peak aortic valve gradient 54 mmHg. Mean aortic valve gradient 29 mmHg. Moderate aortic stenosis. Pulmonic Valve Normal pulmonic valve. Mild (1+) pulmonic valve insufficiency. Great Vessels Normal aortic root. The pulmonary artery is normal size. Inferior vena cava collapse with respiration. Pericardium/Pleural No pericardial effusion. MMode/2D Measurements & Calculations LVIDd: 3.2 cm IVSd: 1.1 cm LVOT diam: 2.0 cm LVIDs: 2.4 cm LVPWd: 1.2 cm LVOT area: 3.1 cm2 RVDd: 3.2 cm FS: 24.7 % Ao root diam: 3.5 cm LAV(MOD-bp): 50.9 ml LVAd ap4: 21.7 cm2 ACS: 0.82 cm LAV(MOD-bp) Indexed: 30.2 ml/m2 LVLd ap4: 7.4 cm LAV(MOD-sp2): 52.3 ml EDV(MOD-sp4): 53.4 ml LAV(MOD-sp4): 46.8 ml EDV(sp4-el): 54.1 ml LVAs ap4: 13.0 cm2 LVLs ap4: 6.0 cm ESV(MOD-sp4): 25.6 ml ESV(sp4-el): 23.9 ml EF(MOD-sp4): 52.1 % EF(sp4-el): 55.9 % SV(MOD-sp4): 27.8 ml SV(sp4-el): 30.3 ml Ao sinus diam: 3.6 cm SI(MOD-sp4): 16.5 ml/m2 Ao ST Junction: 2.7 cm LA A4 area: 17.7 cm2 LA dimension(2D): 3.6 cm RA A4 area: 19.7 cm2 Time Measurements MV dec time: 0.26 sec Doppler Measurements & Calculations MV E max clay: 67.3 cm/sec Lat Peak E' Clay: 12.4 cm/sec Med Peak E' Clay: 6.6 cm/sec MV A max clay: 57.2 cm/sec E/E' lat: 5.4 E/E' med: 10.1 MV E/A: 1.2 MV V2 max: 86.7 cm/sec MV P1/2t max clay: 86.7 cm/sec Ao V2 max: 367.2 cm/sec MV max P.0 mmHg MV P1/2t: 97.4 msec Ao max P.9 mmHg MV V2 mean: 44.1 cm/sec MV dec slope: 260.9 cm/sec2 Ao V2 mean: 252.2 cm/sec MV mean P.92 mmHg Ao mean P.0 mmHg MV V2 VTI: 27.4 cm MVA(P1/2t): 2.3 cm2 Ao V2 VTI: 90.9 cm MVA(VTI): 2.6 cm2 AV (velocity ratio): 0.26 YASMIN(I,D): 0.79 cm2 YASMIN(V,D): 0.81 cm2 LV V1 max: 95.7 cm/sec MR max clay: 580.8 cm/sec SV(LVOT): 71.8 ml LV V1 max P.7 mmHg MR max P.9 mmHg LV V1 mean P.3 mmHg LV V1 mean: 72.4 cm/sec LV V1 VTI: 23.2 cm TR max clay: 314.1 cm/sec TR max P.5 mmHg ECHO/Echo Complete Interpretation Summary Normal LV size. Left ventricular systolic function is normal. The left ventricular ejection fraction is 60 %. Moderate diffuse aortic valve thickening. Mean aortic valve gradient 29 mmHg. Moderate aortic stenosis. Ordering Physician: Ulisses Valderrama Referring Physician: Ulisses Valderrama Performed By: Jamie Crews RCS
== END | disposition home or self-care (01) ==
LOC: CVS 09:56
PROVIDERS: PCP Family Medicine; Referring Provider Nurse Practitioner Family; Visit Provider Nurse Practitioner Family
DX: Q23.81 Bicuspid aortic valve (principal); I10 Essential (primary) hypertension; I71.20 Thoracic aortic aneurysm, without rupture, unspecified

== ENCOUNTER → 2025-05-14 | Outpatient (CLI) | payer MEDICARE, SELFPAY ==
--- NOTE | 2025-05-14 15:07 | BI_ITS ---
EXAM: SCRN MAMM (CAD)W/LUCIAN BILAT DATE: 05/14/2025 CLINICAL HISTORY: F, Age 74 y/o , SCREENING No family history. TECHNIQUE: Procedure Code: [id number] Modality: MG Procedure: SCRN MAMM (CAD)W/LUCIAN BILAT COMPARISON: Prior exam(s) dated May 10, 2024.. FINDINGS: TISSUE DENSITY: The breasts are heterogeneously dense, which may obscure small masses. Bilateral Breast Mammographic Findings: No significant masses, calcifications or other abnormalities are identified. Stable small benign-appearing bilateral axillary lymph nodes. No suspicious masses, areas of developing architectural distortion, or suspicious calcifications. There has been no significant interval change. BI/SCRN MAMM (CAD)W/LUCIAN BILAT IMPRESSION: Stable bilateral screening mammogram. OVERALL FINAL ASSESSMENT BI-RADS 2: BENIGN RECOMMENDATION: Routine annual follow-up in 1 Year Additional Recommendation none A letter with findings and recommendations will be mailed to the patient. Reading Location: [facility]
== END | disposition home or self-care (01) ==
PROVIDERS: PCP Family Medicine; Referring Provider Family Medicine; Visit Provider Family Medicine
DX: Z12.31 Encounter for screening mammogram for malignant neoplasm of breast (principal)
CPT/HCPCS: 77063; 77067

== ENCOUNTER → 2025-06-20 | Outpatient (CLI) | payer MEDICARE, SELFPAY ==
[2025-06-20 12:21] LABS: Hematocrit 36.4 % (37-47); Hemoglobin 12.0 g/dL (12.0-15.0); Immature Granulocytes Count 0.020 X10^3/uL (0.0-0.0); Mean Corp Hgb Conc 33.0 g/dL (32-36); Mean Corpuscular Volume 96.6 fL (81-99); Mean Platelet Vol. 10.5 fl (6.2-12.0); NRBC Flagged by Analyzer 0 % (0-5); Platelet Count 171 K/mm3 (150-450); RBC Distribution Width CV 12.6 % (11.6-14.6); RBC Distribution Width SD 44.7 fl (35.1-43.9); Red Blood Count 3.77 M/mm3 (4.2-5.4); White Blood Count 6.1 K/mm3 (4.4-11.0)
[2025-06-20 13:26] LABS: AST(SGOT) 26 U/L (<=31); Alanine Aminotransfer ALT/SGPT 24 U/L (<=34); Albumin, Serum 4.2 g/dL (3.4-4.8); Alkaline Phosphatase 48 U/L (35-104); Anion Gap 10 (5-15); BUN 16 mg/dL (4-19); BUN/Creat Ratio 18.2 RATIO (10-20); Calcium,Total 9.3 mg/dL (7.6-11.0); Carbon Dioxide 25.7 mmol/L (21.0-32.0); Chloride 103 mmol/L (98-108); Cholesterol 191 mg/dL (<=200); Globulin 2.6 g/dL (2.2-4.2); Glucose 90 mg/dL (70-99); Low Density Lipoprotein Calc. 102 mg/dL; Potassium 4.2 mmol/L (3.3-5.1); Triglycerides 129 mg/dL; Very Low Density Lipoprotein 26 mg/dL (5-40); Vitamin D,25 Hydroxy 33.7 ng/mL (30-100); cholesterol:hdl ratio screen 2.86
[2025-06-20 13:40] LABS: Iron 43 ug/dL (50-170)
== END | disposition home or self-care (01) ==
PROVIDERS: PCP Family Medicine; Referring Provider Family Medicine; Visit Provider Family Medicine
DX: I12.9 Hypertensive chronic kidney disease with stage 1 through stage 4 chronic kidney disease, or unspecified chronic kidney disease (principal); N18.30 Chronic kidney disease, stage 3 unspecified; E03.9 Hypothyroidism, unspecified
CPT/HCPCS: 36415; 80053; 80061; 82306; 83540; 84443; 85025